=== PATIENT | female | born 1950 | race Caucasian/White ===

== ENCOUNTER 2016-12-09 13:31 | Inpatient (IN) | payer BC ==
[2016-12-08 12:54] LABS: MEAN CORPUS HGB CONC 32.3 g/dL (32.0-36.0); MEAN CORPUSCULAR HEMOGLOB 31.7 pg (26.0-34.0); MEAN CORPUSCULAR VOLUME 98.1 fL (80-100); MEAN PLATELET VOLUME 8.9 fL (9.2-13.0); NUCLEATED RED BLOOD CELLS 0.3 /100WBC (0-0); PLATELET COUNT 111 10/3/uL (150-400); RBC DISTRIBUTION WIDTH 21.5 % (12.0-16.0); RED CELL COUNT 2.62 10/6/uL (4.0-5.6)
[2016-12-08 12:55] LABS: HEMATOCRIT 25.7 % (36.0-48.0); HEMOGLOBIN 8.3 g/dL (12.0-16.0); MANUAL DIFF YES %; RETICULOCYTE COUNT 1.8 % (0.5-2.5); RETICULOCYTE COUNT ABSOLUTE 46.7 10/3/uL (20.2-119.8); WHITE BLOOD CELLS 62.2 10/3/uL (4.5-10.5)
[2016-12-08 13:19] LABS: LYMPHOCYTES 98 %; LYMPHOCYTES ABSOLUTE (CALC) 60.96 10/3/uL (0.67-4.30); NEUTROPHILS ABSOLUTE (CALC) 1.24 10/3/uL (2.02-8.40); SEGMENTED NEUTROPHIL (0) 2 %; TOTAL NUCLEATED CELLS 100
[2016-12-08 13:20] LABS: ANISOCYTOSIS 1+ (5-10/OIF) (0-5/OIF); PLATELET ESTIMATE SLT DEC (ADEQUATE)
[2016-12-08 13:21] LABS: SMUDGE CELLS RARE
[2016-12-08 13:26] LABS: ATYPICAL LYMPH MOD (6-10%) (0-5%)
--- NOTE | ~2016-12-09 | OP ---
Record Of [facility] [address] [place]. [address] NAME: DICKSON SOSA : 50 STATUS : ADM IN [facility]#: [id number] AGE: 66 ADM/REG DATE : 12/09/16 MR#: [id number] REPORT SERV DATE: 12/30/16 DICTATED BY: KHOI NAVA DATE: 12/30/16 REPORT STATUS : Draft TRANSCRIBED BY: MODL DATE: 12/30/16 DATE OF PROCEDURE: 12/30/2016 PREOPERATIVE DIAGNOSES: 1. Acute kidney injury. 2. Liver dysfunction. 3. Leukemia. 4. Thrombocytopenia. 5. Coagulopathy. POSTOPERATIVE DIAGNOSES: 1. Acute kidney injury. 2. Liver dysfunction. 3. Leukemia. 4. Thrombocytopenia. 5. Coagulopathy. PROCEDURE: Right IJ Vas-Cath. SURGEON: Khoi Nava M.D. DIRECTOR CLIENT: None. ANESTHESIA: Local. INDICATIONS: The patient is a 66-year-old female with the aforementioned comorbidities who has acute kidney injury. She needs a dialysis catheter. I talked to her family about the risks, benefits, and alternatives of catheter placement. Dr. Tohmas was also present for the discussion to discuss longer term issues. After a thorough discussion, they agreed to proceed. DESCRIPTION OF PROCEDURE: After informed consent was obtained, the patient's right neck was prepped and draped in usual sterile fashion. Ultrasound-guided access was obtained of the right internal jugular vein. The ultrasound image was documented on the chart. I passed a wire centrally. I dilated the tract. I inserted the catheter through into the peel-away sheath and peeled away the sheath. I confirmed that the catheter was not kinked and that it aspirated and flushed well. The catheter was sutured in place, and a sterile dressing was applied. The patient tolerated the procedure well without any intraprocedural complications noted. CLINICAL FELLOW/ELIZABETH Khoi Nava M.D. Record Of [place] [id number] [place]. [id number] NAME: DICKSON SOSA : 50 STATUS : ADM IN PAT#: [id number] AGE: 66 ADM/REG DATE : 12/09/16 MR#: [id number] REPORT SERV DATE: 12/30/16 DICTATED BY: KHOI NAVA DATE: 12/30/16 REPORT STATUS : Draft TRANSCRIBED BY: ELIZABETH DATE: 12/30/16 / [id number] CC: Gina Wiley M.D. Joseph Watlington, M.D.
--- NOTE | ~2016-12-09 | CN ---
Consultation Report [facility] [address] [place]. [address] NAME: DICKSON SOSA : 50 STATUS : ADM IN PAT#: [id number] AGE: 66 ADM/REG DATE : 12/09/16 MR#: [id number] REPORT SERV DATE: 12/14/16 DICTATED BY: BASIM PINO DATE: 12/14/16 REPORT STATUS : Draft TRANSCRIBED BY: MODL DATE: 12/14/16 INFECTIOUS DISEASE CONSULT DATE OF CONSULTATION: REASON FOR REFERRAL: Evaluation and treatment of neutropenic fever. HISTORY OF PRESENT ILLNESS: The patient is a 66-year-old female with history of hypertension, diabetes mellitus, and hypothyroidism. She presented with multiple symptoms and was found to have a strikingly high white blood cell count and diagnosed with AML. She was then admitted on 12/09/2016 to begin chemotherapy for that. White blood cell count at that time 69,000. She was begun on treatment as outlined in Dr. Thomas's notes, and her white blood cell count is now 1.1. She had a fever on 12/11/2016. Blood cultures were taken at that time, and she was started empirically on cefepime, but the fever continued and so Diflucan was added the next day and then vancomycin added yesterday, but despite those antimicrobials, she has continued to be febrile each day to 103 degrees and was 103.1 early this morning. She denies any focal symptoms. She has had some loose stool today, but that is in response to multiple laxatives that were given for chronic problem of constipation. She is not complaining of abdominal cramps or pain. No nausea or vomiting. She is not complaining of a headache. She had some mild mouth soreness, but no ulcerations, no difficulty or pain swallowing. No cough or shortness of breath. No dysuria. No focal joint, muscle, or bone pain and no skin lesions or rashes. She lives in [place], is [place], and has not traveled anywhere outside of this area for several years. She has never traveled outside the [place]. She lives at home with her . He is chronically disabled with congestive heart failure and bed-bound, but has not been ill with any sort of infection-type symptoms recently. No one visiting them or has been around her has had an infection. She has a dog and a bird, both of which she has had for a number of years and neither of them have been sick. She has not been around any other animals. No unusual foods. She spends very little time outside, so no outdoor wilderness or dust exposure. PAST MEDICAL HISTORY: Otherwise, unremarkable. MEDICATIONS: Antibiotics are as described above. ALLERGIES: SHE HAS A HISTORY OF A RASH WITH BOTH PENICILLIN AND SULFA. SOCIAL HISTORY: She is a nonsmoker, has no history of alcohol or substance abuse. FAMILY HISTORY: Noncontributory. PHYSICAL EXAMINATION: GENERAL: She appears tired but nontoxic. Alert and oriented x3. VITAL SIGNS: Most recent temperature as mentioned was 103.1, pulse of 99, respirations 30, Consultation Report [place] [id number] [place]. [address] NAME: DICKSON SOSA : 50 STATUS : ADM IN [facility]#: [id number] AGE: 66 ADM/REG DATE : 12/09/16 MR#: [id number] REPORT SERV DATE: 12/14/16 DICTATED BY: BASIM PINO DATE: 12/14/16 REPORT STATUS : Draft TRANSCRIBED BY: ELIZABETH DATE: 12/14/16 blood pressure 156/66. Weight 93 kg. HEENT: Her sclerae are clear. There are no ulcerations seen. No pharyngeal lesions. NECK: Supple without meningeal signs or lymphadenopathy. LUNGS: Clear to auscultation. HEART: Regular rate and rhythm. ABDOMEN: Soft, nontender. Positive bowel sounds. No masses palpated. EXTREMITIES: Without clubbing, cyanosis, or edema. No swollen, red, or hot joints. No skin lesions or rashes. PICC line is in the right upper extremity, shows no warmth, redness, or tenderness. LABORATORY DATA: White blood cell count as stated is 1.1 today with 16% segs and no bands. Hematocrit 23.2, platelets are 44. BUN and creatinine 11 and 0.66. SGOT 84, SGPT 85. Liver function tests, otherwise, within normal limits. Urine at the time of the fever showed no signs of infection. Blood cultures taken both on 12/11/2016 and 12/13/2016 remain negative. Chest x-ray done three days ago showed no infiltrates. IMPRESSION: Neutropenic fever. The patient was recently diagnosed and treatment started for acute myeloid leukemia. At this point, there is no evident source based on her symptoms and exam and negative cultures. There are no exposures to suggest an unusual source at this time. RECOMMENDATIONS: 1. Agree with the vancomycin and Diflucan and continuing the empiric use of those. 2. For gram-negative coverage, we will change the cefepime to meropenem to better cover resistant gram-negative rods. 3. Followup to cultures has been already done since they were just done late yesterday, would not repeat those today. 4. I will follow the patient with you. I appreciate very much your consulting on this patient. JANETTE/ELIZABETH Basim Pino M.D. / [id number] CC: Gina Wiley M.D.
--- NOTE | ~2016-12-09 | DS ---
Discharge Summary [facility] [address] [place]. [address] NAME: DICKSON SOSA : 50 STATUS : DIS IN PAT#: [id number] AGE: 66 ADM/REG DATE : 12/09/16 MR#: [id number] REPORT SERV DATE: 01/17/17 DICTATED BY: DAVID MACIEL DATE: 01/16/17 REPORT STATUS : Draft TRANSCRIBED BY: ELIZABETH DATE: 01/16/17 Data Collection from hospitalization DISCHARGE DIAGNOSES: 1. Acute myeloblastic leukemia. 2. Decreased platelet count. 3. Kidney injury. 4. Shock. 5. Hypertension. 6. Type 2 diabetes mellitus. 7. Hypothyroidism. 8. Migraines. 9. Dyslipidemia. 10.Chronic anemia. 11.Former smoker. CONSULTATIONS: Dr. Gopi Villalobos, Dr. Ferny Coffman, Dr. Rika Scott, Tejas Welsh, and Dr. Khoi Nava. PROCEDURES: 1. Right IJ Vas-Cath, 12/30/2016. 2. Endotracheal intubation, 01/01/2017. 3. Hepatic echo, 12/23/2016. 4. Renal ultrasound, 12/29/2016. 5. CT scan of the brain without contrast, 12/31/2016. PATHOLOGY: Peripheral smear with severe pancytopenia without significant circulating neutrophils or blasts. Unilateral bone marrow biopsy aspiration and clot section day 13- depleted bone marrow without significant residual leukemic blast population (per routine morphology and flow cytometry). Marginally depleted trilineage hematopoiesis storage iron present. DISPOSITION: [facility] [facility] [facility]. HOSPITAL COURSE: This is a 66-year-old female who has acute myeloblastic leukemia not having achieved remission. The patient was going to be admitted to begin 7 + 3 chemotherapy. Her bone marrow biopsy showed probable acute myeloblastic leukemia. Flow cytometry was pending. Echocardiogram was also pending. She has hypertension and diabetes that are well controlled. She has well-controlled thyroid disease. She was admitted to the hospital at this time for further evaluation and treatment. On the day following admission, 7 + 3 therapy was begun. A PICC line had been inserted. She said she was feeling okay. She had some bilateral shoulder discomfort. IV fluids were being provided. She was transfused packed red blood cells. On the , she was feeling okay. She had a mild cough. She was alert and cooperative. She had no edema. Day 2 of her 7 + 3 continued. She was eating okay. Cefepime had been started. She did complain of having a dry mouth. She was in no distress. On the , her T-max was 101.6. Her anemia was stable. Her decreased platelet count was stable. Cefepime and fluconazole and Discharge Summary [address] [place]. [address] NAME: DICKSON SOSA : 50 STATUS : DIS IN PAT#: [id number] AGE: 66 ADM/REG DATE : 12/09/16 MR#: [id number] REPORT SERV DATE: 01/17/17 DICTATED BY: DAVID MACIEL DATE: 01/16/17 REPORT STATUS : Draft TRANSCRIBED BY: ELIZABETH DATE: 01/16/17 vancomycin were continued. She did have some nausea. On 12/14/2016, she was in no distress. Her lungs were clear bilaterally. She had a normal respiratory effort. Arixtra was held. Liver tests were elevated. She was seen by Dr. Gopi Villalobos for evaluation and treatment of neutropenic fever. She was not complaining of a headache, abdominal cramps or pain, nausea, or vomiting. She had some mild mouth soreness but no ulcerations and no difficulty or pain swallowing. His impression included neutropenic fever. White blood cell count was 1.1. There were no evident sores based on her symptoms and exam and negative cultures. There were no exposures to suggest unusual source at this time. He agreed with vancomycin and Diflucan continuation. Cefepime was changed to meropenem to better cover resistant gram-negative rods. Followup cultures were going to be obtained. On 12/15/2016, she had a little confusion. She said she felt cold. She was in no acute distress. Her affect was flat. Her T-max was 102.9. She was transfused. Allopurinol was stopped. Vitamin K was given. She had no new symptoms. Blood cultures were negative. White blood cell count was 0.5. The next day, she was transfused 2 units. She was transfused platelets. She did develop some diarrhea. She had some mild cramping. Her T- max was 103. C. difficile study was negative. Solu-Medrol was being provided. Nebulizer protocol was in place. On 12/18/2016, she was breathing much better. She had not had a fever in 24 hours. She did feel weak. She had 2+ edema. Her wheezing and dyspnea had resolved with Solu-Medrol and inhalers. Solu-Medrol was stopped. The patient was found to have subconjunctival hemorrhage. Platelets were transfused. Antibiotics were continued. On 12/20/2016, she was lethargic. She did have a fever and some confusion. White count was 0.2. Plans were being made for a bone marrow biopsy to be performed. Her Lasix was increased for fluid overload. On 12/21/2016, the patient felt tired. She had a normal respiratory effort. She had 2+ edema. Cultures were negative. Fluid overload was improving. She had no new symptoms. Following day, a bone marrow biopsy was performed. Potassium supplementation was given. IV Lasix was provided for edema. Her respiratory effort was normal. Her fever had improved. C. difficile study was going to be checked. Her bone marrow was negative for leukemia. Her T-max was 99.3 on the . She was afebrile. She still had some loose stools and abdominal pain. White count was 0.1. The next day, she was in no acute distress. C. difficile study was negative. She had some abdominal cramping earlier after drinking Glucerna. Liver function tests were still elevated a little. She had some mild nausea. Lasix was continued. A hepatic ultrasound had been performed. Hepatitis B, C, and A were negative. G-CSF was added. Lasix was increased. Lipitor was discontinued. Creatinine level had increased, 1.17. It was felt that she would need neutrophil recovery. Echocardiogram was performed. On the , she was lethargic. She was in no acute distress. Her lungs were clear bilaterally. We expected neutrophil recovery soon. Creatinine level was increasing. Potassium supplementation was held. She did have some nausea on the . She was seen by Dr. Ferny Coffman. Over the past week or so, she had been febrile, neutropenic, low albumin, and elevated liver enzymes and was now with acute renal failure. Creatinine had gone from 0.3 to 1.6. She had persistent tachycardia. Creatinine level was now 1.61. Because of her elevated creatinine and acute renal failure, we stopped the Glucophage, Cozaar, and Lasix, and we were going to begin some albumin to mobilize some of the edema and move some fluid intravascularly. Bone marrow was negative for leukemia at last check. she was still neutropenic, pancytopenic, and thrombocytopenic Discharge Summary [place] [address] [facility]. [id number] NAME: DICKSON SOSA : 50 STATUS : DIS IN PAT#: [id number] AGE: 66 ADM/REG DATE : 12/09/16 MR#: [id number] REPORT SERV DATE: 01/17/17 DICTATED BY: DAVID MACIEL DATE: 01/16/17 REPORT STATUS : Draft TRANSCRIBED BY: MODAga DATE: 01/16/17 because of chemotherapy. Metformin was stopped. Glucophage, Cozaar, and Lasix were discontinued. She was being treated with albumin to mobilize some fluid intravascularly. Urine sodium was going to be checked. On the , she was seen by Dr. Rika Scott regarding metabolic acidosis and tachypnea as well as question of hematemesis and AML with profound pancytopenia. ABG performed earlier that evening showed mild metabolic acidosis. She was profoundly thrombocytopenic and had been refractory to platelet transfusion. She has been transfused platelets earlier in the evening, and since the beginning of the shift, she had developed a petechial rash across her lower abdomen and under her breast. At this point, she was oxygenating and ventilating well on minimal supplemental oxygen and was not requiring vasopressors. Renal ultrasound was performed. She was moved to the MICU. It was felt we may ultimately need to move towards mechanical ventilation if she deteriorated further. In light of her hematemesis/hemoptysis, noninvasive positive pressure ventilation (BiPAP) would be contraindicated. Protonix infusion was going to begin. In light of suspected upper GI bleeding, serial H and H's would be checked. We would correct any coagulopathy. It was felt that she may ultimately require packed red blood cell transfusion if her hemoglobin dropped below 7. We would monitor the petechial rash closely. Urine was fairly unremarkable as far as source. Her PICC line had been changed a few days previously. DIC panel was going to be checked as well as a lactate level. On the , she appeared critically ill. She was lethargic. She had some respiratory distress. White blood cell count was 0.1. She was seen by Tejas Monterroso for evaluation and management of questionable upper GI bleeding. There was a question of upper GI bleed versus hemoptysis in a patient with severe thrombocytopenia. She was changed to IV Protonix. We discontinued Protonix drip. She was overloaded at this time. She would be transfused as needed. No endoscopy would be performed at this point in time secondary to multiple issues including respiratory distress and severe pancytopenia. We would need the platelet count to be 40-50 for endoscopy. We were going to check ammonia level as well as daily liver function tests. On 12/30/2016, she became increasingly lethargic. There was no gross bleeding. She was comfortable, but her breathing was labored. She had low urine output. She was still tachypneic. The patient has acute kidney injury. It was felt that she would need a dialysis catheter. We discussed the risks, benefits, and alternatives with the patient and her family, and they agreed to proceed. The patient underwent right IJ Vas-Cath placement by Dr. Khoi Nava. Protonix was continued. The patient's family were aware of her grave prognosis. They repeatedly stated they have a desire to proceed with aggressive support including dialysis, mechanical ventilation if needed. Hemodialysis therapy was performed. On the , she had been transferred to the ICU. She was very lethargic. She had pitting edema. Her abdomen was distended. Transfusions were being provided as needed. Supportive care continued. The patient was obtunded. Platelet count was 4000. Liver function tests were trending down. Hemodialysis therapy was performed. She had a fever to 101.4. Her prognosis remained poor. CT scan of the brain without contrast was performed. No acute intracranial abnormality was identified. On 01/01/2017, she remained critically ill. She was on Levophed and face mask. She was still obtunded. Her T-max was 101.3. Chest x-ray was negative. She was already receiving micafungin. Her prognosis remained very poor. A new PICC line was inserted. Her mental status was declining. She developed hypercapnic respiratory failure. She required endotracheal intubation by Dr. Bayron Laurent due to her respiratory failure. The following day, she was comfortable on the ventilator. She was sedated. Her T-max is 99.9. This was a difficult situation as we expected marrow recovery- Discharge Summary [facility] [place]. [address] NAME: DICKSON SOSA : 50 STATUS : DIS IN PAT#: [id number] AGE: 66 ADM/REG DATE : 12/09/16 MR#: [id number] REPORT SERV DATE: 01/17/17 DICTATED BY: DAVID MACIEL DATE: 01/16/17 REPORT STATUS : Draft TRANSCRIBED BY: ELIZABETH DATE: 01/16/17 into remission over the next few days, but multiple organ systems were now failing (lung, kidney, liver, and circulation). Her T-max was 100.6 later that day. The patient was made a DNR code status. She was presently intubated and on no sedation. A palliative care consult was performed, and the patient had no response to verbal or painful stimuli. The patient had been agreeable to a DNR code status. Her condition continued to decline. Once the patient's family was ready, we were going to initiate withdrawal of care and extubation. Later that evening, the patient was without blood pressure, pulse, or respirations. She was pronounced at 1835 and released to the above-mentioned home. Information collected by: Kary Perez I submit the above information as my discharge summary. SERGIO/ELIZABETH David aMciel M.D. / [id number] CC: Gina Rodriguez M.D. Destin Griffin-Trussell, FNP Sachin V Phade, M.D. Joseph Watlington, M.D.
--- NOTE | ~2016-12-09 | CN ---
Consultation Report [facility] [address] [place]. [address] NAME: DICKSON SOSA : 50 STATUS : ADM IN [facility]#: [id number] AGE: 66 ADM/REG DATE : 12/09/16 MR#: [id number] REPORT SERV DATE: 12/28/16 DICTATED BY: FERNY BALTAZAR DATE: 12/28/16 REPORT STATUS : Draft TRANSCRIBED BY: MODAga DATE: 12/28/16 NEPHROLOGY CONSULTATION DATE OF CONSULTATION: HISTORY OF PRESENT ILLNESS: Ms. Sosa is a 66-year-old white female, admitted for chemotherapy, acute myelocytic leukemia. She has been in the hospital now over 20 days, admitted here apparently on 12/09/2016. In the last week or so, she has been febrile, neutropenic, low albumin, elevated liver enzymes, and now with acute renal failure. Creatinine has gone from 0.3 to 1.6 over the last seven days. Intake and output over the last several days have not been recorded. It has been incomplete because of not measuring urine output and significant diarrhea. She has no hypotension reported. She had persistent tachycardia. She has been less febrile over the last several days, but prior to that, had significant insensible losses because of her fever and diarrhea. MEDICATIONS: Currently Zovirax, Benadryl, vancomycin, Lasix, NovoLog insulin, Synthroid, Cozaar, Merrem, Glucophage, Protonix, vitamin K, potassium, Granix, and vancomycin. She is also on micafungin and electrolyte replacement therapy. ALLERGIES: SHE IS ALLERGIC TO PENICILLIN AND SEPTRA, BOTH OF THESE DEVELOP A RASH, AND SHE ALSO SAYS SHE IS ALLERGIC TO NAPROXEN AND OXYCODONE. PAST MEDICAL HISTORY: Hypothyroidism, hypertension, and diabetes mellitus type 2. REVIEW OF SYSTEMS: Hospitalized diarrhea, fever, chills, chemotherapy, pancytopenia, and weakness. PHYSICAL EXAMINATION: VITAL SIGNS: Blood pressure 138/64, heart rate 105, respirations 24, temperature 97.5. GENERAL: She is tachypneic, sleepy, but in no acute distress. HEENT: Unremarkable. NECK: Without jugular venous distention. No lymphadenopathy. CHEST: Clear anteriorly with some crackles at the bases and some mild expiratory wheezing at the end of expiration. ABDOMEN: Obese, benign. Bowel sounds are present. She states it is tender, but she cannot tell me where. EXTREMITIES: 3+ pitting edema diffusely. NEUROLOGIC: Nonfocal. SKIN: No rash. LABORATORY DATA: Shows sodium 140, potassium 3.7, chloride 108, CO2 of 20 with a BUN of 58, creatinine 1.61, up from 1.17 yesterday, 0.8 the day before, and baseline 0.39. SGOT 153, SGPT of 186. White count 0.1, hemoglobin 7.6, hematocrit 21.7, platelet count 2000. Consultation Report [facility] [address] [place]. [address] NAME: DICKSON SOSA : 50 STATUS : ADM IN [facility]#: [id number] AGE: 66 ADM/REG DATE : 12/09/16 MR#: [id number] REPORT SERV DATE: 12/28/16 DICTATED BY: FERNY BALTAZAR DATE: 12/28/16 REPORT STATUS : Draft TRANSCRIBED BY: ELIZABETH DATE: 12/28/16 ASSESSMENT: 1. Acute kidney injury, mostly prerenal. She had some diarrhea starting on 12/22/2016. Diuretics were started on 12/16/2016, but increased the dose on 12/20/2016 and again on 12/27/2016. She is chronically edematous secondary to albumin of 1.2 and not taking p.o. well. Apparently, she does not appear intravascularly volume expanded, but mostly third spacing of fluids. Cannot rule out the vancomycin playing a role in her kidney failure or interstitial nephritis, doubt obstruction. Because of her elevated creatinine and acute renal failure, we will stop the Glucophage, Cozaar, and Lasix, and begin some albumin to mobilize some of the edema and move some fluid intravascularly. 2. Acute myelomonocytic leukemia. Bone marrow negative for leukemia last check. Still neutropenic, pancytopenic, and thrombocytopenic because of the chemotherapy. 3. Elevated liver enzymes, unknown etiology. 4. Possible sepsis because of neutropenia, hard to tell, but has been febrile until just recently. Currently on vancomycin, meropenem, and micafungin. 5. Diabetes mellitus type 2, on insulin. We will stop the metformin. 6. Hypothyroid, on therapy. 7. Diarrhea, we will check for C diff since is at the hospital and on diuretics. PLAN: Stop Glucophage, Cozaar, and Lasix, treat with albumin to mobilize some fluid intravascularly. Hopefully, it is mostly prerenal. We will check a urine sodium also. SHIVANI/ELIZABETH Ferny Baltazar M.D. / [id number] CC: Gina Wiley M.D.
--- NOTE | ~2016-12-09 | OP ---
Record Of Operation [facility] [address] [place]. [address] NAME: DICKSON SOSA : 50 STATUS : ADM IN [facility]#: [id number] AGE: 66 ADM/REG DATE : 12/09/16 MR#: [id number] REPORT SERV DATE: 01/01/17 DICTATED BY: BAYRON LAURENT DATE: 01/01/17 REPORT STATUS : Draft TRANSCRIBED BY: MODL DATE: 01/01/17 DATE OF PROCEDURE: 01/01/2017 PROCEDURE: Endotracheal intubation. PREPROCEDURE DIAGNOSIS: Respiratory failure. POSTPROCEDURE DIAGNOSIS: Respiratory failure. DESCRIPTION OF PROCEDURE: Verbal consent obtained from the by phone. The patient's mental status was a GCS less than 8 and she had acute hypercapnic respiratory failure, on BiPAP. The patient was taken off the BiPAP and Ambu bagged with O2 saturations at the start of the procedure 95% or greater. She was given 20 mg of etomidate to assist in sedation. Using a Mac 4 blade, I was able to place a 7.5 ET tube without any difficulty. No significant complications or bleeding. Postprocedure chest x-ray is pending. CEP/ELIZABETH Bayron Laurent DO / [id number] CC: Gina Wiley M.D.
--- NOTE | ~2016-12-09 | CN ---
Consultation Report [facility] [id number] [place]. [address] NAME: DICKSON SOSA : 50 STATUS : ADM IN PAT#: [id number] AGE: 66 ADM/REG DATE : 12/09/16 MR#: [id number] REPORT SERV DATE: 12/29/16 DICTATED BY: FERNY BALTAZAR DATE: 12/28/16 REPORT STATUS : Draft TRANSCRIBED BY: ELIZABETH DATE: 12/28/16 NEPHROLOGY CONSULT NOTE DATE OF CONSULTATION: HISTORY OF PRESENT ILLNESS: Ms. Sosa is a 66-year-old lady with acute myelocytic leukemia, admitted to the hospital for chemotherapy. She is on her 20th day of hospitalization. DICTATION ENDS HERE SHIVANI/ELIZABETH Ferny Baltazar M.D. / [id number] CC: Gina Wiley M.D.
--- NOTE | ~2016-12-09 | CN ---
Consultation Report [facility] [address] [place]. [address] NAME: DICKSON SOSA : 50 STATUS : ADM IN PAT#: [id number] AGE: 66 ADM/REG DATE : 12/09/16 MR#: [id number] REPORT SERV DATE: 12/29/16 DICTATED BY: RIKA LAMA DATE: 12/29/16 REPORT STATUS : Draft TRANSCRIBED BY: MODL DATE: 12/29/16 PULMONARY CRITICAL CARE MEDICINE CONSULTATION DATE OF CONSULTATION: 12/29/2016 REASON FOR CONSULTATION: Metabolic acidosis and tachypnea, question of hematemesis, AML with profound pancytopenia. HISTORY OF PRESENT ILLNESS: Ms. Sosa is a 66-year-old lady who was admitted for chemotherapy after being diagnosed with acute myelocytic leukemia. She was initially admitted here on 12/09/2016 and has been undergoing therapy on . Over the last week, she has become intermittently febrile with neutropenia secondary to chemotherapy, hypoalbuminemia, elevated transaminases, and has now developed acute kidney injury. She was seen by Dr. Coffman earlier today who felt she was intravascularly dry despite being extravascularly volume overloaded with 3+ pitting edema and bilateral crackles. Of note, she has been having significant diarrhea over the last several days and limited p.o. intake. We were asked to transfer Ms. Sosa to the MICU for closer monitoring tonight after developing some bleeding from her mouth with question of hematemesis versus hemoptysis versus both. She is currently awake, alert, and oriented, but profoundly weak with some tachypnea. An ABG performed earlier this evening showed mild metabolic acidosis. Of note, she is profoundly thrombocytopenic and has been refractory to platelet transfusions. She was transfused platelets earlier this evening and since beginning of the shift, has developed petechial rash across her lower abdomen and under her breasts. Her most recent bone marrow biopsy was actually negative for leukemia suggestive of a good response to therapy and remission, and Dr. Mahmood feels that in light of this, continued aggressive medical management is reasonable. At this point, she is oxygenating and ventilating well on minimal supplemental oxygen and is not requiring vasopressors. PAST MEDICAL HISTORY: In addition to recently diagnosed AML, includes hypothyroidism, hypertension, and type 2 diabetes mellitus. She had chicken pox, measles, and shingles in the past. She has a history of migraines, cataracts, an intra-ocular lens implant, dyslipidemia, prior dental surgery, disc herniation, arthritis, pinched nerve in her back, chronic constipation. She has had a prior cholecystectomy, appendectomy, and hysterectomy. She is diabetic and has chronic anemia. Her primary care physician is Dr. Keagan Mulligan. Her primary oncologist is Dr. Toby Thomas. FAMILY HISTORY: Mother had stomach cancer. Father had hypertension and diabetes. A brother has COPD and another brother has diabetes. SOCIAL HISTORY: Denies alcohol, tobacco, or illicit drug use. She is a former smoker, but quit many years ago. She has a daughter, named Nikc Cagle, whose phone number is [phone]. Consultation Report [address] [place]. [address] NAME: DICKSON SOSA : 50 STATUS : ADM IN [facility]#: [id number] AGE: 66 ADM/REG DATE : 12/09/16 MR#: [id number] REPORT SERV DATE: 12/29/16 DICTATED BY: RIKA LAMA DATE: 12/29/16 REPORT STATUS : Draft TRANSCRIBED BY: ELIZABETH DATE: 12/29/16 ADVANCED DIRECTIVES: Living Mcgee: None. She is a full code at this point. REVIEW OF SYSTEMS: A comprehensive 13-point review of systems was completed and is negative except for those points described above in the history of present illness section of the dictation. ALLERGIES: PENICILLIN CAUSES A RASH, SULFA ANTIBIOTICS CAUSE A RASH, OXYCODONE HAS CAUSED ITCHING IN THE PAST, NAPROXEN HAS CAUSED A RASH. HOME MEDICATIONS: Include levothyroxine 88 mcg p.o. daily, metformin 500 mg p.o. daily, losartan 100 mg p.o. daily, Crestor 20 mg p.o. daily, aspirin 81 mg p.o. daily, multivitamin once daily, and Tylenol up to every 8 hours as needed for pain. PHYSICAL EXAMINATION: VITAL SIGNS: Heart rate is 103. She is satting 99% on 2 L of supplemental oxygen. Her temperature is 99.1, and she is breathing 24 times per minute. GENERAL: She is in no acute distress. She is a female who looks debilitated with significant pallor. HEENT: Head is atraumatic and normocephalic. Pupils are equal, round, and reactive to light. Extraocular movements are intact. She has conjunctival pallor. Ears and nose are unremarkable. Her mouth is dry with some crusted blood in her teeth and around the gingival mucosa. NECK: Supple without JVD. LUNGS: She has few bilateral basilar crackles. HEART: S1, S2. Mildly tachycardic with brisk capillary refill, distal extremities. ABDOMEN: Obese, soft, with anasarca and some striations. : A Ocampo catheter is indwelling and draining cola-colored urine. EXTREMITIES: With 3+ edema which pits bilaterally. Her nails are well manicured. LYMPHATIC: Unremarkable. She has no palpable adenopathy. NEUROLOGIC: Significant for generalized weakness. She is unable to move her legs and has a weak cough. SKIN: She has a petechial rash under the breasts and under her pannus and developing over her upper abdomen. PSYCHOLOGIC: Appropriate to situation. LABORATORY STUDIES: A CBC from today showed a white blood cell count of 0.1 with a hemoglobin of 7.6, and a hematocrit of 21.7 (normochromic normocytic). Her platelet count is 2, which has dropped from 5 yesterday, despite platelet transfusions. INR is 1.8. Sodium is 140, potassium is 3.7, chloride is 108, carbon dioxide level is 20, BUN is 58, creatinine is 1.61, calculated GFR is 33 mL/min, glucose is 149, calcium is 6.3, magnesium is 2.1, total protein is 4.8 with an albumin level of 1.2, total bilirubin is 3.3. She has elevated transaminases. Alk phos is 108, ALT is 186, and AST is 153. A random vancomycin level was 24.6. An ABG performed this evening shows pH of 7.45, PaCO2 of 27, pO2 of 66, base excess of negative 4.9, bicarb is 18.5 (calculated), O2 sat is 91.6 on 28% FiO2. Her Consultation Report [facility] [address] [place]. [address] NAME: DICKSON SOSA : 50 STATUS : ADM IN [facility]#: [id number] AGE: 66 ADM/REG DATE : 12/09/16 MR#: [id number] REPORT SERV DATE: 12/29/16 DICTATED BY: RIKA LAMA DATE: 12/29/16 REPORT STATUS : Draft TRANSCRIBED BY: MODAga DATE: 12/29/16 urinalysis this evening shows turbid urine with mild glucosuria and proteinuria, trace ketones, negative bilirubin, large blood with only 8 red blood cells and 0 white blood cells. Leukocyte esterase and nitrite are negative. A chest x-ray performed this evening shows hazy bilateral opacities in the lower lung zones with a PICC line indwelling on the right side, low lung volumes, and mild cardiomegaly (there was a recumbent film, this maybe magnification of the cardiac silhouette due to positioning). Echocardiogram performed on 12/27/2016 shows 58% left ventricular systolic function and normal right ventricular systolic pressure at 29 mmHg. Her estimated PA systolic pressure was 28.6. Bone marrow biopsy performed 12/22/2016 shows severe pancytopenia without significant circulating neutrophils or blasts. IMPRESSION: 1. Acute hypoxemic respiratory failure, which is responding well to supplemental oxygen. 2. Metabolic acidosis with some respiratory compensation. 3. Question of evolving sepsis of unclear etiology. 4. Acute kidney injury, likely secondary to acute tubular necrosis with clinical evidence of volume depletion in the setting of vancomycin administration and recent diarrhea. 5. Severe pancytopenia, which has been refractory to platelets. 6. Bleeding from the mouth in the setting of thrombocytopenia, question of hematemesis versus hemoptysis versus both. 7. Coagulopathy with an INR of 1.8 in the setting of recent chemotherapy. 8. Petechial rash, which is new this evening with recent platelet administration. 9. Additional past medical history as above. 10.Severe physical deconditioning and protein-calorie malnutrition. 11.Acute myeloid leukemia with evidence of good response to chemotherapy based on 12/22/2016 bone marrow biopsy. 12.Additional past medical history as above. PLAN: Ms. Sosa has been moved to the MICU for close monitoring and serial labs. Our hope is to avoid the need to intubate; however, in the setting of respiratory muscle weakness and inability to clear secretions and tachypneic from metabolic acidosis, certainly a possibility. We will monitor her closely on supplemental oxygen and may ultimately need to move toward mechanical ventilation if she deteriorates further in light of her hematemesis/hemoptysis, noninvasive positive pressure ventilation (BiPAP) would be contraindicated. We will start her on a Protonix infusion in light of suspected upper GI bleeding and check serial H and H's and correct any coagulopathy. She may ultimately require packed red blood cell transfusion if her hemoglobin drops below 7.0, and we will involve a Gastroenterology tomorrow morning and proceed with volume replacement if needed this evening. We will monitor her petechial rash closely and keep Oncology updated with regard to question of evolving sepsis. Her urine is fairly unremarkable as far as source, and her PICC line was changed a few days ago. She is being followed by Dr. Villalobos from Infectious Diseases, and is already on broad-spectrum antimicrobial coverage as well as antifungal coverage. C. diff was sent earlier today by Dr. Coffman. We will also send DIC panel and check a lactate level. She is a full code at this point and we will continue to update her daughter on an as-needed basis and again tomorrow morning. Consultation Report [address] [address] NAME: DICKSON SOSA : 50 STATUS : ADM IN [facility]#: [id number] AGE: 66 ADM/REG DATE : 12/09/16 MR#: [id number] REPORT SERV DATE: 12/29/16 DICTATED BY: RIKA LAMA DATE: 12/29/16 REPORT STATUS : Draft TRANSCRIBED BY: ELIZABETH DATE: 12/29/16 HELENE/ELIZABETH Rika Lama MD / [id number] CC: Gina Wiley M.D.
--- NOTE | ~2016-12-09 | CN ---
Consultation Report [facility] [address] [place]. [address] NAME: DICKSON SOSA : 50 STATUS : ADM IN PAT#: [id number] AGE: 66 ADM/REG DATE : 12/09/16 MR#: [id number] REPORT SERV DATE: 12/29/16 DICTATED BY: JOANNA REBOLLEDO DATE: 12/29/16 REPORT STATUS : Draft TRANSCRIBED BY: MODAga DATE: 12/29/16 GI CONSULTATION DATE OF CONSULTATION: 12/29/2016 REASON FOR CONSULTATION: Evaluation and management of questionable upper GI bleeding. HISTORY OF PRESENT ILLNESS: Ms Sosa is a 66-year-old female patient, who has been seen by Dr. Zaheer Wright in the distant past, who presented to [facility] on 12/14/2016 secondary to neutropenic fever. She has a history of having an elevated white blood cell count, and ultimately was diagnosed with AML. She was admitted on 12/09/2016, undergoing chemotherapy on the Oncology Unit over the last week, and they reported she has been intermittently spiking fevers, severe neutropenia secondary to chemotherapy as well as elevated liver enzymes with acute kidney injury developing most recently. Renal has seen her. She was ultimately moved to the MICU for closer monitoring. It appears that overnight she developed some bleeding from her mouth with question if this could be hematemesis or hemoptysis, it is not clear. She did also have a noted petechial rash that did develop across her lower abdomen, under her breasts as well as on her upper chest with a noted platelet count this morning is 0. Her white blood cell count is 0.12, and she has been refractory to any platelet transfusions. She currently awakens to name, but she is very ill appearing. She is oriented. She is profoundly weak. She is short of breath just trying to have conversation. She has noted anasarca. She is receiving a respiratory treatment at this point in time. She actually had a bone marrow biopsy done which was negative for leukemia suggestive of a very good response to her chemotherapy at this point in time. She was moved to the MICU for further care with concern of impending intubation. At this point in time, she is maintaining adequate sats on 2 L by nasal cannula. However, she does have some increased respiratory drive. I have discussed with the patient, she denies any nausea or any vomiting. She has abdominal discomfort, but she relates that to swelling. There has been no report of melanotic stools. She has been started on a Protonix drip. I have discussed the case with Dr. Byrne, hospital geographic information systems engineer at this point in time secondary to all of her abnormal laboratory values. She is not optimal candidate for scope. Platelet count preferably would be 40 to 50 for endoscopy. We will keep her on the Protonix and monitor her symptoms. If emergent scope is needed, we will discuss with Dr. Wright. PAST MEDICAL HISTORY: She has a past medical history of colon polyps; recently diagnosed AML, undergoing therapy; hypothyroidism; type 2 diabetes; obesity; hypertension; migraines; cataracts with an intra-ocular lens implant history; dental surgeries; disk herniation; arthritis; back with pinched nerve; chronic constipation; dyslipidemia; cholecystectomy; appendectomy; and hysterectomy. FAMILY HISTORY: Positive for stomach cancer in her mother. SOCIAL HISTORY: She lives independently up until her hospitalization. She was noted to be a former smoker. No alcohol or illicits in the outpatient setting. Consultation Report [address] [place]. [address] NAME: DICKSON SOSA : 50 STATUS : ADM IN [facility]#: [id number] AGE: 66 ADM/REG DATE : 12/09/16 MR#: [id number] REPORT SERV DATE: 12/29/16 DICTATED BY: JOANNA REBOLLEDO DATE: 12/29/16 REPORT STATUS : Draft TRANSCRIBED BY: ELIZABETH DATE: 12/29/16 ALLERGIES: ALLERGIES ARE LISTED TO PENICILLIN, SULFA, OXYCODONE, AND NAPROXEN. HOME MEDICATIONS: Listed to levothyroxine, metformin, losartan, Crestor, aspirin, multivitamin, and Tylenol. REVIEW OF SYSTEMS: Review of systems is somewhat limited due to the patient's status. PHYSICAL EXAMINATION: VITAL SIGNS: Temperature is 98.5, pulse 100, respirations 30, and blood pressure 133/53. NEUROLOGIC: Reveals an ill-appearing female, resting in bed. She does open her eyes to name. GENERAL: She is in distress secondary to some mild shortness of breath, which increases with any exertion. HEAD, EARS, EYES, NOSE, AND THROAT: Anicteric. Pupils are equal, round, and reactive to light and accommodation. Normocephalic and atraumatic. NECK: Supple. No JVD noted. No palpable nodes. LUNGS: She has shallow inspiratory effort with some crackles bilaterally. Mild respiratory rate count of 34. CARDIOVASCULAR SYSTEM: Regular rate and rhythm. Tachycardic in nature. ABDOMEN: Obese. Nondistended, but she has noted anasarca throughout. She has no tenderness to palpation in all four quadrants. She has hypoactive bowel sounds throughout. Unable to assess organomegaly. EXTREMITIES: She has noted generalized anasarca with 3+ pitting lower extremity edema. SKIN: Noted petechial rash in the upper chest as well as underneath the breasts and underneath the abdominal pannus. PERTINENT LABORATORY DATA: Sodium is 141, potassium 4.1, BUN 74, and creatinine is 2.12. White count 0.1, hemoglobin previously was 5.9, with a hematocrit of 17. She is status post transfusion with improvement to 8.0 hemoglobin, and a 22.7 hematocrit, and platelet count is 0. INR is 1.3. Total bilirubin 3.1, alkaline phosphatase 109, ALT 172, and AST 161. Hepatitis panel has been negative. ASSESSMENT: 1. Questionable upper gastrointestinal bleed versus hemoptysis in a patient with severe thrombocytopenia. 2. Acute myelogenous leukemia, undergoing treatment with reported good response to chemotherapy based on the 12/22/2016 bone marrow biopsy. 3. Anemia, acute on chronic status post transfusion. 4. Acute hypoxic respiratory failure, responding well at present to supplemental oxygen. Question intubation and pending. 5. Severe pancytopenia, refractory to platelets. 6. Elevated LFTs with coagulopathy. 7. Questionable sepsis. Consultation Report [address] [place]. [address] NAME: DICKSON SOSA : 50 STATUS : ADM IN [facility]#: [id number] AGE: 66 ADM/REG DATE : 12/09/16 MR#: [id number] REPORT SERV DATE: 12/29/16 DICTATED BY: JOANNA REBOLLEDO DATE: 12/29/16 REPORT STATUS : Draft TRANSCRIBED BY: MODL DATE: 12/29/16 PLAN: 1. We will change her Protonix to 40 mg IV q.6 hours and discontinue the Protonix drip to decrease additional volume as she is overloaded at this time. 2. Continue to monitor H and H, transfuse as needed. 3. No endoscopy at this point in time secondary to multiple issues including respiratory distress, severe pancytopenia. We would need the platelet count to be 40 to 50 for endoscopy. 4. We will continue to follow. 5. Check an ammonia level as well as daily LFTs. We will follow. OBINNA/ELIZABETH Chula DEBORAH Monterroso / [id number] CC: Gina Wiley M.D.
[2016-12-09 15:24] LABS: INTERNATIONAL NORMAL RATI 1.3 UNITS (-); PROTIME (NOT ORD) 15.6 SEC (12.0-14.5)
[2016-12-09] MEDS ORDERED: LEVOTHYROXIN88 MCG PO (15:49)
[2016-12-09] MEDS ORDERED: GLUCPH PO (15:51)
[2016-12-09] MEDS ORDERED: COZAAR100 MG PO (15:52)
[2016-12-09] MEDS ORDERED: CRESTOR20 MG PO (15:53)
[2016-12-09] MEDS ORDERED: ASAB PO (15:54)
[2016-12-09] MEDS ORDERED: GUMMY MULTIVITAMIN PO (15:57)
[2016-12-09] MEDS ORDERED: 8 HOUR650 MG PO (15:59)
[2016-12-10 05:59] LABS: INTERNATIONAL NORMAL RATI 1.4 UNITS (-); PARTIAL THROMBO TIME 33.4 SEC (22.5-37.2); PROTIME (NOT ORD) 16.9 SEC (12.0-14.5)
[2016-12-10 06:03] LABS: MEAN CORPUS HGB CONC 31.8 g/dL (32.0-36.0); MEAN CORPUSCULAR VOLUME 100.5 fL (80-100); MEAN PLATELET VOLUME 9.3 fL (9.2-13.0); NUCLEATED RED BLOOD CELLS 0.1 /100WBC (0-0); PLATELET COUNT 105 10/3/uL (150-400); RBC DISTRIBUTION WIDTH 21.5 % (12.0-16.0); RED CELL COUNT 2.19 10/6/uL (4.0-5.6)
[2016-12-10 06:05] LABS: MANUAL DIFF YES %; WHITE BLOOD CELLS 69.8 10/3/uL (4.5-10.5)
[2016-12-10 06:08] LABS: CALCIUM, SERUM 8.5 MG/DL (8.5-10.4); CHLORIDE, SERUM 108 MMOL/L (96-112); CO2 (CARBON DIOXIDE) 29 MMOL/L (24-34); CREATININE 0.62 MG/DL (0.55-1.02); FREE T4 1.18 NG/DL (0.76-1.46); GFR AFRICAN AMERICAN 109 ML/MIN (>=60); GFR NON AFRICAN AMERICAN 94 ML/MIN (>=60); GLUCOSE, SERUM 102 MG/DL (60-99); SGOT(AST) 26 U/L (5-40); SGPT(ALT) 42 U/L (5-65); SODIUM, SERUM 139 MMOL/L (135-148); TOTAL BILIRUBIN 0.3 MG/DL (0-1.2); TOTAL PROTEIN 6.6 G/DL (6.0-8.5)
[2016-12-10 06:09] LABS: A/G RATIO 0.8 (0.7-1.9); ALKALINE PHOSPHATASE 47 U/L (45-117); BUN (BLOOD UREA NITROGEN) 7 MG/DL (6-23); GLOBULIN 3.6 G/DL (2.5-4.1)
[2016-12-10 07:22] LABS: ANISOCYTOSIS 1+ (5-10/OIF) (0-5/OIF); ATYPICAL LYMPH MOD (6-10%) (0-5%); BAND NEUTROPHILS 1 %; LYMPHOCYTES 95 %; LYMPHOCYTES ABSOLUTE (CALC) 66.31 10/3/uL (0.67-4.30); MONOCYTES 1 %; NEUTROPHILS ABSOLUTE (CALC) 2.79 10/3/uL (2.02-8.40); PLATELET ESTIMATE DEC (ADEQUATE); SEGMENTED NEUTROPHIL (0) 3 %; SMUDGE CELLS RARE; TOTAL NUCLEATED CELLS 100
[2016-12-11 05:36] LABS: HEMOGLOBIN 7.8 g/dL (12.0-16.0); MEAN CORPUS HGB CONC 32.1 g/dL (32.0-36.0); MEAN CORPUSCULAR HEMOGLOB 31.7 pg (26.0-34.0); MEAN CORPUSCULAR VOLUME 98.8 fL (80-100); MEAN PLATELET VOLUME 9.1 fL (9.2-13.0); NUCLEATED RED BLOOD CELLS 0.2 /100WBC (0-0); PLATELET COUNT 87 10/3/uL (150-400); RBC DISTRIBUTION WIDTH 21.8 % (12.0-16.0); RED CELL COUNT 2.46 10/6/uL (4.0-5.6)
[2016-12-11 05:37] LABS: HEMATOCRIT 24.3 % (36.0-48.0); MANUAL DIFF YES %; WHITE BLOOD CELLS 51.1 10/3/uL (4.5-10.5)
[2016-12-11 05:47] LABS: A/G RATIO 0.8 (0.7-1.9); ALBUMIN 2.8 G/DL (3.5-5.0); ALKALINE PHOSPHATASE 49 U/L (45-117); BUN (BLOOD UREA NITROGEN) 10 MG/DL (6-23); CALCIUM, SERUM 8.4 MG/DL (8.5-10.4); CHLORIDE, SERUM 108 MMOL/L (96-112); CO2 (CARBON DIOXIDE) 25 MMOL/L (24-34); GFR AFRICAN AMERICAN 110 ML/MIN (>=60); GFR NON AFRICAN AMERICAN 95 ML/MIN (>=60); GLOBULIN 3.5 G/DL (2.5-4.1); GLUCOSE, SERUM 118 MG/DL (60-99); POTASSIUM, SERUM 4.1 MMOL/L (3.5-5.3); SGOT(AST) 26 U/L (5-40); SGPT(ALT) 47 U/L (5-65); SODIUM, SERUM 140 MMOL/L (135-148); TOTAL BILIRUBIN 0.4 MG/DL (0-1.2); TOTAL PROTEIN 6.3 G/DL (6.0-8.5)
[2016-12-11 06:29] LABS: BAND NEUTROPHILS 1 %; LYMPHOCYTES 97 %; LYMPHOCYTES ABSOLUTE (CALC) 49.57 10/3/uL (0.67-4.30); MONOCYTES 1 %; MONOCYTES ABSOLUTE (CALC) 0.51 10/3/uL (0.21-1.20); NEUTROPHILS ABSOLUTE (CALC) 1.02 10/3/uL (2.02-8.40); PLATELET ESTIMATE DEC (ADEQUATE); SEGMENTED NEUTROPHIL (0) 1 %; TOTAL NUCLEATED CELLS 100
[2016-12-11 06:30] LABS: OVALOCYTES 1+ (3-10/OIF) (0-2/OIF); POLYCHROMASIA 1+ (2-5/OIF) (0-1/OIF)
[2016-12-11 06:31] LABS: ATYPICAL LYMPH MOD (6-10%) (0-5%)
[2016-12-11 06:32] LABS: SMUDGE CELLS FEW
[2016-12-11 14:45] LABS: ASCORBIC ACID (UR NOT ORDER) NEG (NEG); BILIRUBIN, URINE NEGATIVE (NEG); KETONE, URINE NEGATIVE (NEG); LEUKOCYTE ESTERASE(NOT OR NEG (NEG); WBC (NOT ORDERED) (RFLEX) 3 (0-5)
[2016-12-12 05:43] LABS: HEMATOCRIT 24.5 % (36.0-48.0); HEMOGLOBIN 7.8 g/dL (12.0-16.0); MANUAL DIFF YES %; MEAN CORPUS HGB CONC 31.8 g/dL (32.0-36.0); MEAN CORPUSCULAR HEMOGLOB 31.3 pg (26.0-34.0); MEAN CORPUSCULAR VOLUME 98.4 fL (80-100); MEAN PLATELET VOLUME 9.1 fL (9.2-13.0); NUCLEATED RED BLOOD CELLS 0.2 /100WBC (0-0); PLATELET COUNT 83 10/3/uL (150-400); RBC DISTRIBUTION WIDTH 20.8 % (12.0-16.0); RED CELL COUNT 2.49 10/6/uL (4.0-5.6); WHITE BLOOD CELLS 22.3 10/3/uL (4.5-10.5)
[2016-12-12 05:50] LABS: A/G RATIO 0.8 (0.7-1.9); ALBUMIN 2.9 G/DL (3.5-5.0); ALKALINE PHOSPHATASE 54 U/L (45-117); BUN (BLOOD UREA NITROGEN) 12 MG/DL (6-23); CALCIUM, SERUM 7.8 MG/DL (8.5-10.4); CHLORIDE, SERUM 105 MMOL/L (96-112); CO2 (CARBON DIOXIDE) 24 MMOL/L (24-34); CREATININE 0.75 MG/DL (0.55-1.02); GFR AFRICAN AMERICAN 96 ML/MIN (>=60); GFR NON AFRICAN AMERICAN 83 ML/MIN (>=60); GLOBULIN 3.6 G/DL (2.5-4.1); GLUCOSE, SERUM 112 MG/DL (60-99); POTASSIUM, SERUM 3.9 MMOL/L (3.5-5.3); SGOT(AST) 32 U/L (5-40); SGPT(ALT) 51 U/L (5-65); SODIUM, SERUM 136 MMOL/L (135-148); TOTAL BILIRUBIN 0.7 MG/DL (0-1.2); TOTAL PROTEIN 6.5 G/DL (6.0-8.5)
[2016-12-12 06:16] LABS: LYMPHOCYTES 94 %; LYMPHOCYTES ABSOLUTE (CALC) 20.96 10/3/uL (0.67-4.30); MONOCYTES 5 %; MONOCYTES ABSOLUTE (CALC) 1.12 10/3/uL (0.21-1.20); NEUTROPHILS ABSOLUTE (CALC) 0.22 10/3/uL (2.02-8.40); PLATELET ESTIMATE DEC (ADEQUATE); SEGMENTED NEUTROPHIL (0) 1 %; TOTAL NUCLEATED CELLS 100
[2016-12-12 06:17] LABS: ANISOCYTOSIS 1+ (5-10/OIF) (0-5/OIF); ATYPICAL LYMPH MOD (6-10%) (0-5%)
[2016-12-13 02:37] LABS: HEMATOCRIT 23.5 % (36.0-48.0); HEMOGLOBIN 7.4 g/dL (12.0-16.0); MANUAL DIFF YES %; MEAN CORPUS HGB CONC 31.5 g/dL (32.0-36.0); MEAN CORPUSCULAR HEMOGLOB 31.1 pg (26.0-34.0); MEAN CORPUSCULAR VOLUME 98.7 fL (80-100); MEAN PLATELET VOLUME 9.4 fL (9.2-13.0); PLATELET COUNT 71 10/3/uL (150-400); RBC DISTRIBUTION WIDTH 20.8 % (12.0-16.0); RED CELL COUNT 2.38 10/6/uL (4.0-5.6); WHITE BLOOD CELLS 6.6 10/3/uL (4.5-10.5)
[2016-12-13 02:50] LABS: BUN (BLOOD UREA NITROGEN) 11 MG/DL (6-23); CALCIUM, SERUM 7.5 MG/DL (8.5-10.4); CHLORIDE, SERUM 109 MMOL/L (96-112); CO2 (CARBON DIOXIDE) 24 MMOL/L (24-34); GFR AFRICAN AMERICAN 105 ML/MIN (>=60); GFR NON AFRICAN AMERICAN 90 ML/MIN (>=60); GLUCOSE, SERUM 112 MG/DL (60-99); POTASSIUM, SERUM 4.5 MMOL/L (3.5-5.3); SODIUM, SERUM 141 MMOL/L (135-148)
[2016-12-13 03:00] LABS: LYMPHOCYTES 93 %; LYMPHOCYTES ABSOLUTE (CALC) 6.14 10/3/uL (0.67-4.30); MONOCYTES 3 %; NEUTROPHILS ABSOLUTE (CALC) 0.26 10/3/uL (2.02-8.40); SEGMENTED NEUTROPHIL (0) 4 %; TOTAL NUCLEATED CELLS 100
[2016-12-13 03:01] LABS: ANISOCYTOSIS 1+ (5-10/OIF) (0-5/OIF); PLATELET ESTIMATE DEC (ADEQUATE); SMUDGE CELLS RARE
[2016-12-14 06:45] LABS: HEMATOCRIT 23.2 % (36.0-48.0); HEMOGLOBIN 7.6 g/dL (12.0-16.0); MEAN CORPUS HGB CONC 32.8 g/dL (32.0-36.0); MEAN CORPUSCULAR HEMOGLOB 31.8 pg (26.0-34.0); MEAN CORPUSCULAR VOLUME 97.1 fL (80-100); MEAN PLATELET VOLUME 8.8 fL (9.2-13.0); RBC DISTRIBUTION WIDTH 20.5 % (12.0-16.0); RED CELL COUNT 2.39 10/6/uL (4.0-5.6)
[2016-12-14 06:46] LABS: MANUAL DIFF YES %; PLATELET COUNT 44 10/3/uL (150-400); WHITE BLOOD CELLS 1.1 10/3/uL (4.5-10.5)
[2016-12-14 06:51] LABS: A/G RATIO 0.6 (0.7-1.9); ALBUMIN 2.5 G/DL (3.5-5.0); ALKALINE PHOSPHATASE 59 U/L (45-117); BUN (BLOOD UREA NITROGEN) 11 MG/DL (6-23); CALCIUM, SERUM 7.6 MG/DL (8.5-10.4); CHLORIDE, SERUM 109 MMOL/L (96-112); CO2 (CARBON DIOXIDE) 22 MMOL/L (24-34); CREATININE 0.66 MG/DL (0.55-1.02); GFR AFRICAN AMERICAN 107 ML/MIN (>=60); GFR NON AFRICAN AMERICAN 92 ML/MIN (>=60); GLOBULIN 3.9 G/DL (2.5-4.1); GLUCOSE, SERUM 114 MG/DL (60-99); POTASSIUM, SERUM 4.1 MMOL/L (3.5-5.3); SGOT(AST) 84 U/L (5-40); SGPT(ALT) 85 U/L (5-65); SODIUM, SERUM 138 MMOL/L (135-148); TOTAL BILIRUBIN 0.7 MG/DL (0-1.2); TOTAL PROTEIN 6.4 G/DL (6.0-8.5)
[2016-12-14 07:40] LABS: ANISOCYTOSIS 1+ (5-10/OIF) (0-5/OIF); LYMPHOCYTES 76 %; LYMPHOCYTES ABSOLUTE (CALC) 0.84 10/3/uL (0.67-4.30); MONOCYTES 8 %; MONOCYTES ABSOLUTE (CALC) 0.09 10/3/uL (0.21-1.20); NEUTROPHILS ABSOLUTE (CALC) 0.18 10/3/uL (2.02-8.40); SEGMENTED NEUTROPHIL (0) 16 %; TOTAL NUCLEATED CELLS 50
[2016-12-14 07:41] LABS: ATYPICAL LYMPH FEW (3-5%) (0-5%)
[2016-12-15 05:07] LABS: MEAN CORPUS HGB CONC 32.6 g/dL (32.0-36.0); MEAN CORPUSCULAR HEMOGLOB 31.3 pg (26.0-34.0); MEAN CORPUSCULAR VOLUME 95.9 fL (80-100); MEAN PLATELET VOLUME 8.6 fL (9.2-13.0); RBC DISTRIBUTION WIDTH 20.8 % (12.0-16.0); RED CELL COUNT 1.95 10/6/uL (4.0-5.6)
[2016-12-15 05:14] LABS: HEMATOCRIT 18.7 % (36.0-48.0); HEMOGLOBIN 6.1 g/dL (12.0-16.0); PLATELET COUNT 24 10/3/uL (150-400); WHITE BLOOD CELLS 0.5 10/3/uL (4.5-10.5)
[2016-12-15 05:15] LABS: INTERNATIONAL NORMAL RATI 1.6 UNITS (-); PROTIME (NOT ORD) 18.5 SEC (12.0-14.5)
[2016-12-15 05:16] LABS: MANUAL DIFF YES %
[2016-12-15 05:19] LABS: A/G RATIO 0.6 (0.7-1.9); ALBUMIN 2.1 G/DL (3.5-5.0); ALKALINE PHOSPHATASE 55 U/L (45-117); BUN (BLOOD UREA NITROGEN) 11 MG/DL (6-23); CHLORIDE, SERUM 107 MMOL/L (96-112); CO2 (CARBON DIOXIDE) 25 MMOL/L (24-34); CREATININE 0.56 MG/DL (0.55-1.02); GFR AFRICAN AMERICAN 113 ML/MIN (>=60); GFR NON AFRICAN AMERICAN 97 ML/MIN (>=60); GLOBULIN 3.3 G/DL (2.5-4.1); GLUCOSE, SERUM 114 MG/DL (60-99); POTASSIUM, SERUM 3.8 MMOL/L (3.5-5.3); SGOT(AST) 108 U/L (5-40); SGPT(ALT) 105 U/L (5-65); SODIUM, SERUM 139 MMOL/L (135-148); TOTAL BILIRUBIN 0.7 MG/DL (0-1.2); TOTAL PROTEIN 5.4 G/DL (6.0-8.5)
[2016-12-15 05:20] LABS: CALCIUM, SERUM 6.8 MG/DL (8.5-10.4)
[2016-12-15 05:34] LABS: ANISOCYTOSIS 1+ (5-10/OIF) (0-5/OIF); LYMPHOCYTES 86 %; LYMPHOCYTES ABSOLUTE (CALC) 0.43 10/3/uL (0.67-4.30); NEUTROPHILS ABSOLUTE (CALC) 0.07 10/3/uL (2.02-8.40); SEGMENTED NEUTROPHIL (0) 14 %; TOTAL NUCLEATED CELLS 100
[2016-12-15 05:35] LABS: ELLIPTOCYTES 1+ (3-10/OIF) (0-2/OIF); RBC MORPHOLOGY ABN (NORMAL); TEARDROP SHAPED RBCS OCC (0-2/OIF)
[2016-12-16 06:19] LABS: INTERNATIONAL NORMAL RATI 1.6 UNITS (-); PROTIME (NOT ORD) 19.2 SEC (12.0-14.5)
[2016-12-16 06:24] LABS: HEMATOCRIT 18.1 % (36.0-48.0); HEMOGLOBIN 6.1 g/dL (12.0-16.0); MEAN CORPUS HGB CONC 33.7 g/dL (32.0-36.0); MEAN CORPUSCULAR HEMOGLOB 31.4 pg (26.0-34.0); MEAN CORPUSCULAR VOLUME 93.3 fL (80-100); MEAN PLATELET VOLUME 8.5 fL (9.2-13.0); RBC DISTRIBUTION WIDTH 21.1 % (12.0-16.0); RED CELL COUNT 1.94 10/6/uL (4.0-5.6); WHITE BLOOD CELLS 0.4 10/3/uL (4.5-10.5)
[2016-12-16 06:25] LABS: PLATELET COUNT 9 10/3/uL (150-400)
[2016-12-16 06:26] LABS: MANUAL DIFF YES %
[2016-12-16 06:31] LABS: A/G RATIO 0.6 (0.7-1.9); ALBUMIN 1.8 G/DL (3.5-5.0); ALKALINE PHOSPHATASE 45 U/L (45-117); BUN (BLOOD UREA NITROGEN) 13 MG/DL (6-23); CALCIUM, SERUM 6.6 MG/DL (8.5-10.4); CHLORIDE, SERUM 109 MMOL/L (96-112); CO2 (CARBON DIOXIDE) 25 MMOL/L (24-34); CREATININE 0.62 MG/DL (0.55-1.02); GFR AFRICAN AMERICAN 109 ML/MIN (>=60); GFR NON AFRICAN AMERICAN 94 ML/MIN (>=60); GLOBULIN 2.9 G/DL (2.5-4.1); GLUCOSE, SERUM 135 MG/DL (60-99); POTASSIUM, SERUM 3.3 MMOL/L (3.5-5.3); SGOT(AST) 110 U/L (5-40); SGPT(ALT) 95 U/L (5-65); SODIUM, SERUM 139 MMOL/L (135-148); TOTAL BILIRUBIN 0.7 MG/DL (0-1.2); TOTAL PROTEIN 4.7 G/DL (6.0-8.5)
[2016-12-16 07:16] LABS: ANISOCYTOSIS 1+ (5-10/OIF) (0-5/OIF); LYMPHOCYTES 80 %; LYMPHOCYTES ABSOLUTE (CALC) 0.32 10/3/uL (0.67-4.30); MONOCYTES 5 %; MONOCYTES ABSOLUTE (CALC) 0.02 10/3/uL (0.21-1.20); NEUTROPHILS ABSOLUTE (CALC) 0.06 10/3/uL (2.02-8.40); SEGMENTED NEUTROPHIL (0) 15 %; TOTAL NUCLEATED CELLS 20
[2016-12-16 07:17] LABS: HYPOCHROMIA 1+ (3-10/OIF) (0-2/OIF)
[2016-12-17 06:02] LABS: MEAN CORPUS HGB CONC 34.5 g/dL (32.0-36.0); MEAN CORPUSCULAR HEMOGLOB 31.2 pg (26.0-34.0); MEAN PLATELET VOLUME 10.2 fL (9.2-13.0); RBC DISTRIBUTION WIDTH 20.7 % (12.0-16.0)
[2016-12-17 06:03] LABS: HEMATOCRIT 23.5 % (36.0-48.0); HEMOGLOBIN 8.1 g/dL (12.0-16.0); MANUAL DIFF YES %; MEAN CORPUSCULAR VOLUME 90.4 fL (80-100); PLATELET COUNT 27 10/3/uL (150-400); WHITE BLOOD CELLS 0.2 10/3/uL (4.5-10.5)
[2016-12-17 06:09] LABS: A/G RATIO 0.7 (0.7-1.9); ALKALINE PHOSPHATASE 50 U/L (45-117); BUN (BLOOD UREA NITROGEN) 14 MG/DL (6-23); CHLORIDE, SERUM 106 MMOL/L (96-112); CO2 (CARBON DIOXIDE) 25 MMOL/L (24-34); GFR AFRICAN AMERICAN 110 ML/MIN (>=60); GFR NON AFRICAN AMERICAN 95 ML/MIN (>=60); GLUCOSE, SERUM 157 MG/DL (60-99); INTERNATIONAL NORMAL RATI 1.5 UNITS (-); POTASSIUM, SERUM 3.6 MMOL/L (3.5-5.3); PROTIME (NOT ORD) 17.7 SEC (12.0-14.5); SGOT(AST) 127 U/L (5-40); SGPT(ALT) 94 U/L (5-65); SODIUM, SERUM 139 MMOL/L (135-148)
[2016-12-17 06:10] LABS: CALCIUM, SERUM 6.6 MG/DL (8.5-10.4); TOTAL BILIRUBIN 1.4 MG/DL (0-1.2)
[2016-12-17 07:33] LABS: LYMPHOCYTES 74 %; LYMPHOCYTES ABSOLUTE (CALC) 0.15 10/3/uL (0.67-4.30); MONOCYTES 21 %; MONOCYTES ABSOLUTE (CALC) 0.04 10/3/uL (0.21-1.20); NEUTROPHILS ABSOLUTE (CALC) 0.01 10/3/uL (2.02-8.40); SEGMENTED NEUTROPHIL (0) 5 %; TOTAL NUCLEATED CELLS 100
[2016-12-17 07:34] LABS: ANISOCYTOSIS 1+ (5-10/OIF) (0-5/OIF)
[2016-12-17 07:35] LABS: HELMET CELLS OCC (0-2/OIF); POLYCHROMASIA 1+ (2-5/OIF) (0-1/OIF); TEARDROP SHAPED RBCS OCC (0-2/OIF)
[2016-12-17 07:36] LABS: HYPOCHROMIA 1+ (3-10/OIF) (0-2/OIF); SPHEROCYTES OCC (0-2/OIF)
[2016-12-17 07:37] LABS: MACROCYTES 1+ (5-10/OIF) (0-5/OIF); MICROCYTES 1+ (5-10/OIF) (0-5/OIF)
[2016-12-18 06:41] LABS: HEMATOCRIT 24.6 % (36.0-48.0); HEMOGLOBIN 8.3 g/dL (12.0-16.0); MEAN CORPUS HGB CONC 33.7 g/dL (32.0-36.0); MEAN CORPUSCULAR HEMOGLOB 30.6 pg (26.0-34.0); MEAN CORPUSCULAR VOLUME 90.8 fL (80-100); MEAN PLATELET VOLUME 9.8 fL (9.2-13.0); RBC DISTRIBUTION WIDTH 20.7 % (12.0-16.0); RED CELL COUNT 2.71 10/6/uL (4.0-5.6)
[2016-12-18 06:44] LABS: MANUAL DIFF YES %; PLATELET COUNT 15 10/3/uL (150-400); WHITE BLOOD CELLS 0.2 10/3/uL (4.5-10.5)
[2016-12-18 06:49] LABS: INTERNATIONAL NORMAL RATI 1.4 UNITS (-)
[2016-12-18 07:01] LABS: A/G RATIO 0.5 (0.7-1.9); ALBUMIN 1.7 G/DL (3.5-5.0); ALKALINE PHOSPHATASE 49 U/L (45-117); BUN (BLOOD UREA NITROGEN) 13 MG/DL (6-23); CHLORIDE, SERUM 111 MMOL/L (96-112); CO2 (CARBON DIOXIDE) 26 MMOL/L (24-34); CREATININE 0.54 MG/DL (0.55-1.02); GFR AFRICAN AMERICAN 114 ML/MIN (>=60); GFR NON AFRICAN AMERICAN 98 ML/MIN (>=60); GLOBULIN 3.3 G/DL (2.5-4.1); GLUCOSE, SERUM 211 MG/DL (60-99); POTASSIUM, SERUM 3.8 MMOL/L (3.5-5.3); SGOT(AST) 123 U/L (5-40); SGPT(ALT) 88 U/L (5-65); SODIUM, SERUM 143 MMOL/L (135-148); TOTAL BILIRUBIN 0.7 MG/DL (0-1.2)
[2016-12-18 07:42] LABS: LYMPHOCYTES 80 %; LYMPHOCYTES ABSOLUTE (CALC) 0.16 10/3/uL (0.67-4.30); MONOCYTES 20 %; MONOCYTES ABSOLUTE (CALC) 0.04 10/3/uL (0.21-1.20); TOTAL NUCLEATED CELLS 20
[2016-12-18 07:44] LABS: ANISOCYTOSIS 1+ (5-10/OIF) (0-5/OIF); POLYCHROMASIA 1+ (2-5/OIF) (0-1/OIF); TEARDROP SHAPED RBCS OCC (0-2/OIF)
[2016-12-18 07:46] LABS: ELLIPTOCYTES 1+ (3-10/OIF) (0-2/OIF); HELMET CELLS OCC (0-2/OIF); MICROCYTES 1+ (5-10/OIF) (0-5/OIF)
[2016-12-18 07:47] LABS: SCHISTOCYTES OCC (0-2/OIF); SPHEROCYTES OCC (0-2/OIF)
[2016-12-19 04:47] LABS: HEMOGLOBIN 9.8 g/dL (12.0-16.0); MEAN CORPUS HGB CONC 34.1 g/dL (32.0-36.0); MEAN CORPUSCULAR HEMOGLOB 31.1 pg (26.0-34.0); MEAN CORPUSCULAR VOLUME 91.1 fL (80-100); RBC DISTRIBUTION WIDTH 20.3 % (12.0-16.0); RED CELL COUNT 3.15 10/6/uL (4.0-5.6)
[2016-12-19 04:48] LABS: HEMATOCRIT 28.7 % (36.0-48.0); PLATELET COUNT 10 10/3/uL (150-400); WHITE BLOOD CELLS 0.3 10/3/uL (4.5-10.5)
[2016-12-19 04:49] LABS: MANUAL DIFF YES %
[2016-12-19 04:53] LABS: INTERNATIONAL NORMAL RATI 1.3 UNITS (-); PROTIME (NOT ORD) 16.1 SEC (12.0-14.5)
[2016-12-19 04:59] LABS: A/G RATIO 0.6 (0.7-1.9); CALCIUM, SERUM 7.3 MG/DL (8.5-10.4); CHLORIDE, SERUM 110 MMOL/L (96-112); CO2 (CARBON DIOXIDE) 28 MMOL/L (24-34); CREATININE 0.62 MG/DL (0.55-1.02); GFR AFRICAN AMERICAN 109 ML/MIN (>=60); GFR NON AFRICAN AMERICAN 94 ML/MIN (>=60); GLOBULIN 3.6 G/DL (2.5-4.1); POTASSIUM, SERUM 3.7 MMOL/L (3.5-5.3); SGOT(AST) 160 U/L (5-40); SGPT(ALT) 126 U/L (5-65); SODIUM, SERUM 145 MMOL/L (135-148); TOTAL BILIRUBIN 1.1 MG/DL (0-1.2); TOTAL PROTEIN 5.6 G/DL (6.0-8.5)
[2016-12-19 05:00] LABS: ALKALINE PHOSPHATASE 60 U/L (45-117); BUN (BLOOD UREA NITROGEN) 17 MG/DL (6-23); GLUCOSE, SERUM 148 MG/DL (60-99)
[2016-12-19 05:32] LABS: ANISOCYTOSIS 1+ (5-10/OIF) (0-5/OIF); LYMPHOCYTES 80 %; LYMPHOCYTES ABSOLUTE (CALC) 0.24 10/3/uL (0.67-4.30); MONOCYTES 20 %; MONOCYTES ABSOLUTE (CALC) 0.06 10/3/uL (0.21-1.20); TOTAL NUCLEATED CELLS 25
[2016-12-20 05:58] LABS: HEMOGLOBIN 8.5 g/dL (12.0-16.0); INTERNATIONAL NORMAL RATI 1.4 UNITS (-); MEAN CORPUS HGB CONC 33.3 g/dL (32.0-36.0); MEAN CORPUSCULAR HEMOGLOB 30.7 pg (26.0-34.0); MEAN CORPUSCULAR VOLUME 92.1 fL (80-100); MEAN PLATELET VOLUME 10.7 fL (9.2-13.0); PROTIME (NOT ORD) 17.1 SEC (12.0-14.5); RED CELL COUNT 2.77 10/6/uL (4.0-5.6)
[2016-12-20 05:59] LABS: HEMATOCRIT 25.5 % (36.0-48.0); MANUAL DIFF YES %; PLATELET COUNT 40 10/3/uL (150-400); WHITE BLOOD CELLS 0.2 10/3/uL (4.5-10.5)
[2016-12-20 06:11] LABS: A/G RATIO 0.6 (0.7-1.9); ALBUMIN 1.8 G/DL (3.5-5.0); ALKALINE PHOSPHATASE 56 U/L (45-117); BUN (BLOOD UREA NITROGEN) 15 MG/DL (6-23); CALCIUM, SERUM 7.1 MG/DL (8.5-10.4); CHLORIDE, SERUM 110 MMOL/L (96-112); CO2 (CARBON DIOXIDE) 28 MMOL/L (24-34); CREATININE 0.45 MG/DL (0.55-1.02); GFR AFRICAN AMERICAN 121 ML/MIN (>=60); GFR NON AFRICAN AMERICAN 104 ML/MIN (>=60); GLOBULIN 3.2 G/DL (2.5-4.1); GLUCOSE, SERUM 152 MG/DL (60-99); POTASSIUM, SERUM 3.2 MMOL/L (3.5-5.3); SGOT(AST) 126 U/L (5-40); SGPT(ALT) 117 U/L (5-65); SODIUM, SERUM 143 MMOL/L (135-148); TOTAL BILIRUBIN 1.5 MG/DL (0-1.2)
[2016-12-20 06:44] LABS: IMMATURE GRANS ABSOLUTE (CALC) 0.01 10/3/uL (0.0-0.11); LYMPHOCYTES 55 %; LYMPHOCYTES ABSOLUTE (CALC) 0.11 10/3/uL (0.67-4.30); MONOCYTES 35 %; MONOCYTES ABSOLUTE (CALC) 0.07 10/3/uL (0.21-1.20); MYELOCYTES 5 %; NEUTROPHILS ABSOLUTE (CALC) 0.01 10/3/uL (2.02-8.40); SEGMENTED NEUTROPHIL (0) 5 %; TOTAL NUCLEATED CELLS 20
[2016-12-20 06:45] LABS: ANISOCYTOSIS 1+ (5-10/OIF) (0-5/OIF); ELLIPTOCYTES 1+ (3-10/OIF) (0-2/OIF); TEARDROP SHAPED RBCS OCC (0-2/OIF)
[2016-12-21 04:06] LABS: HEMOGLOBIN 7.7 g/dL (12.0-16.0); MEAN CORPUS HGB CONC 33.8 g/dL (32.0-36.0); MEAN CORPUSCULAR HEMOGLOB 30.9 pg (26.0-34.0); MEAN CORPUSCULAR VOLUME 91.6 fL (80-100); MEAN PLATELET VOLUME 10.7 fL (9.2-13.0); RBC DISTRIBUTION WIDTH 19.4 % (12.0-16.0); RED CELL COUNT 2.49 10/6/uL (4.0-5.6)
[2016-12-21 04:08] LABS: HEMATOCRIT 22.8 % (36.0-48.0); MANUAL DIFF YES %; PLATELET COUNT 19 10/3/uL (150-400); WHITE BLOOD CELLS 0.2 10/3/uL (4.5-10.5)
[2016-12-21 04:13] LABS: INTERNATIONAL NORMAL RATI 1.5 UNITS (-); PROTIME (NOT ORD) 17.5 SEC (12.0-14.5)
[2016-12-21 04:24] LABS: A/G RATIO 0.5 (0.7-1.9); ALBUMIN 1.6 G/DL (3.5-5.0); ALKALINE PHOSPHATASE 51 U/L (45-117); BUN (BLOOD UREA NITROGEN) 14 MG/DL (6-23); CALCIUM, SERUM 6.5 MG/DL (8.5-10.4); CHLORIDE, SERUM 107 MMOL/L (96-112); CO2 (CARBON DIOXIDE) 32 MMOL/L (24-34); CREATININE 0.44 MG/DL (0.55-1.02); GFR AFRICAN AMERICAN 122 ML/MIN (>=60); GFR NON AFRICAN AMERICAN 105 ML/MIN (>=60); GLUCOSE, SERUM 131 MG/DL (60-99); POTASSIUM, SERUM 2.6 MMOL/L (3.5-5.3); SGOT(AST) 77 U/L (5-40); SGPT(ALT) 85 U/L (5-65); SODIUM, SERUM 139 MMOL/L (135-148); TOTAL BILIRUBIN 1.2 MG/DL (0-1.2); TOTAL PROTEIN 4.6 G/DL (6.0-8.5)
[2016-12-21 04:37] LABS: LYMPHOCYTES 100 %; TOTAL NUCLEATED CELLS 100
[2016-12-21 04:38] LABS: RBC MORPHOLOGY NORM (NORMAL)
[2016-12-21 08:42] LABS: RETICULOCYTE COUNT 0.1 % (0.5-2.9); RETICULOCYTE COUNT ABSOLUTE 2.2 10/3/uL (20.2-119.8)
[2016-12-22 04:35] LABS: HEMATOCRIT 21.8 % (36.0-48.0); HEMOGLOBIN 7.3 g/dL (12.0-16.0); MEAN CORPUS HGB CONC 33.5 g/dL (32.0-36.0); MEAN CORPUSCULAR HEMOGLOB 30.7 pg (26.0-34.0); MEAN CORPUSCULAR VOLUME 91.6 fL (80-100); RBC DISTRIBUTION WIDTH 19.2 % (12.0-16.0); RED CELL COUNT 2.38 10/6/uL (4.0-5.6)
[2016-12-22 04:36] LABS: PLATELET COUNT 11 10/3/uL (150-400); WHITE BLOOD CELLS 0.2 10/3/uL (4.5-10.5)
[2016-12-22 04:37] LABS: MANUAL DIFF YES %
[2016-12-22 04:55] LABS: BUN (BLOOD UREA NITROGEN) 14 MG/DL (6-23); CHLORIDE, SERUM 106 MMOL/L (96-112); CO2 (CARBON DIOXIDE) 30 MMOL/L (24-34); CREATININE 0.34 MG/DL (0.55-1.02); GFR AFRICAN AMERICAN 133 ML/MIN (>=60); GFR NON AFRICAN AMERICAN 114 ML/MIN (>=60); GLUCOSE, SERUM 130 MG/DL (60-99); SODIUM, SERUM 141 MMOL/L (135-148)
[2016-12-22 04:56] LABS: CALCIUM, SERUM 6.5 MG/DL (8.5-10.4); POTASSIUM, SERUM 2.8 MMOL/L (3.5-5.3)
[2016-12-22 05:26] LABS: ANISOCYTOSIS 1+ (5-10/OIF) (0-5/OIF); IMMATURE MONONUCLEAR 1 % (0); LYMPHOCYTES 80 %; LYMPHOCYTES ABSOLUTE (CALC) 0.16 10/3/uL (0.67-4.30); MONOCYTES 18 %; MONOCYTES ABSOLUTE (CALC) 0.04 10/3/uL (0.21-1.20); SEGMENTED NEUTROPHIL (0) 1 %; TOTAL NUCLEATED CELLS 100
[2016-12-22 09:25] LABS: RETICULOCYTE COUNT 0.1 % (0.5-2.9); RETICULOCYTE COUNT ABSOLUTE 1.9 10/3/uL (20.2-119.8)
[2016-12-23 01:34] LABS: HEMOGLOBIN 7.4 g/dL (12.0-16.0); MEAN CORPUS HGB CONC 33.6 g/dL (32.0-36.0); MEAN CORPUSCULAR HEMOGLOB 30.7 pg (26.0-34.0); MEAN CORPUSCULAR VOLUME 91.3 fL (80-100); RED CELL COUNT 2.41 10/6/uL (4.0-5.6)
[2016-12-23 01:35] LABS: PLATELET COUNT 6 10/3/uL (150-400); WHITE BLOOD CELLS 0.2 10/3/uL (4.5-10.5)
[2016-12-23 01:37] LABS: MANUAL DIFF YES %
[2016-12-23 01:40] LABS: INTERNATIONAL NORMAL RATI 1.5 UNITS (-); PROTIME (NOT ORD) 18.3 SEC (12.0-14.5)
[2016-12-23 01:54] LABS: A/G RATIO 0.4 (0.7-1.9); ALBUMIN 1.4 G/DL (3.5-5.0); ALKALINE PHOSPHATASE 57 U/L (45-117); BUN (BLOOD UREA NITROGEN) 15 MG/DL (6-23); CHLORIDE, SERUM 106 MMOL/L (96-112); CO2 (CARBON DIOXIDE) 28 MMOL/L (24-34); CREATININE 0.39 MG/DL (0.55-1.02); GFR AFRICAN AMERICAN 127 ML/MIN (>=60); GFR NON AFRICAN AMERICAN 109 ML/MIN (>=60); GLOBULIN 3.2 G/DL (2.5-4.1); GLUCOSE, SERUM 108 MG/DL (60-99); SGOT(AST) 69 U/L (5-40); SGPT(ALT) 91 U/L (5-65); SODIUM, SERUM 140 MMOL/L (135-148); TOTAL PROTEIN 4.6 G/DL (6.0-8.5)
[2016-12-23 01:55] LABS: CALCIUM, SERUM 6.3 MG/DL (8.5-10.4); POTASSIUM, SERUM 2.9 MMOL/L (3.5-5.3); TOTAL BILIRUBIN 2.3 MG/DL (0-1.2)
[2016-12-23 03:32] LABS: LYMPHOCYTES 79 %; LYMPHOCYTES ABSOLUTE (CALC) 0.16 10/3/uL (0.67-4.30); MONOCYTES 14 %; MONOCYTES ABSOLUTE (CALC) 0.03 10/3/uL (0.21-1.20); NEUTROPHILS ABSOLUTE (CALC) 0.01 10/3/uL (2.02-8.40); SEGMENTED NEUTROPHIL (0) 7 %; TOTAL NUCLEATED CELLS 14
[2016-12-23 03:33] LABS: ANISOCYTOSIS 1+ (5-10/OIF) (0-5/OIF)
[2016-12-24 04:32] LABS: INTERNATIONAL NORMAL RATI 1.8 UNITS (-); PROTIME (NOT ORD) 20.3 SEC (12.0-14.5)
[2016-12-24 04:38] LABS: A/G RATIO 0.5 (0.7-1.9); ALBUMIN 1.4 G/DL (3.5-5.0); ALKALINE PHOSPHATASE 64 U/L (45-117); BUN (BLOOD UREA NITROGEN) 18 MG/DL (6-23); CHLORIDE, SERUM 104 MMOL/L (96-112); CO2 (CARBON DIOXIDE) 29 MMOL/L (24-34); GFR AFRICAN AMERICAN 110 ML/MIN (>=60); GFR NON AFRICAN AMERICAN 95 ML/MIN (>=60); GLOBULIN 3.1 G/DL (2.5-4.1); GLUCOSE, SERUM 114 MG/DL (60-99); SGOT(AST) 57 U/L (5-40); SGPT(ALT) 84 U/L (5-65); SODIUM, SERUM 138 MMOL/L (135-148); TOTAL BILIRUBIN 2.3 MG/DL (0-1.2); TOTAL PROTEIN 4.5 G/DL (6.0-8.5)
[2016-12-24 04:39] LABS: CALCIUM, SERUM 5.9 MG/DL (8.5-10.4)
[2016-12-24 04:54] LABS: MEAN CORPUSCULAR HEMOGLOB 30.7 pg (26.0-34.0); MEAN CORPUSCULAR VOLUME 90.4 fL (80-100); RBC DISTRIBUTION WIDTH 19.2 % (12.0-16.0); RED CELL COUNT 2.28 10/6/uL (4.0-5.6); WHITE BLOOD CELLS 0.1 10/3/uL (4.5-10.5)
[2016-12-24 04:55] LABS: HEMATOCRIT 20.6 % (36.0-48.0); PLATELET COUNT 25 10/3/uL (150-400)
[2016-12-24 04:56] LABS: MANUAL DIFF YES %
[2016-12-24 06:50] LABS: TOTAL NUCLEATED CELLS 100
[2016-12-24 06:51] LABS: ANISOCYTOSIS 1+ (5-10/OIF) (0-5/OIF); LYMPHOCYTES 100 %
[2016-12-25 04:58] LABS: HEMATOCRIT 20.9 % (36.0-48.0); HEMOGLOBIN 7.1 g/dL (12.0-16.0); MEAN CORPUSCULAR HEMOGLOB 30.6 pg (26.0-34.0); MEAN CORPUSCULAR VOLUME 90.1 fL (80-100); PLATELET COUNT 13 10/3/uL (150-400); RBC DISTRIBUTION WIDTH 19.2 % (12.0-16.0); RED CELL COUNT 2.32 10/6/uL (4.0-5.6); WHITE BLOOD CELLS 0.1 10/3/uL (4.5-10.5)
[2016-12-25 04:59] LABS: MANUAL DIFF YES %
[2016-12-25 05:05] LABS: INTERNATIONAL NORMAL RATI 1.7 UNITS (-); PROTIME (NOT ORD) 19.4 SEC (12.0-14.5)
[2016-12-25 05:13] LABS: A/G RATIO 0.4 (0.7-1.9); ALBUMIN 1.3 G/DL (3.5-5.0); ALKALINE PHOSPHATASE 67 U/L (45-117); CHLORIDE, SERUM 103 MMOL/L (96-112); CO2 (CARBON DIOXIDE) 26 MMOL/L (24-34); CREATININE 0.68 MG/DL (0.55-1.02); GFR AFRICAN AMERICAN 106 ML/MIN (>=60); GFR NON AFRICAN AMERICAN 91 ML/MIN (>=60); GLOBULIN 3.2 G/DL (2.5-4.1); GLUCOSE, SERUM 135 MG/DL (60-99); SGOT(AST) 74 U/L (5-40); SGPT(ALT) 91 U/L (5-65); SODIUM, SERUM 135 MMOL/L (135-148); TOTAL BILIRUBIN 2.2 MG/DL (0-1.2); TOTAL PROTEIN 4.5 G/DL (6.0-8.5)
[2016-12-25 05:14] LABS: BUN (BLOOD UREA NITROGEN) 24 MG/DL (6-23); CALCIUM, SERUM 5.9 MG/DL (8.5-10.4); POTASSIUM, SERUM 2.8 MMOL/L (3.5-5.3)
[2016-12-25 05:46] LABS: ANISOCYTOSIS 1+ (5-10/OIF) (0-5/OIF); LYMPHOCYTES 80 %; LYMPHOCYTES ABSOLUTE (CALC) 0.08 10/3/uL (0.67-4.30); MONOCYTES 20 %; MONOCYTES ABSOLUTE (CALC) 0.02 10/3/uL (0.21-1.20); TOTAL NUCLEATED CELLS 25
[2016-12-25 05:47] LABS: TEARDROP SHAPED RBCS OCC (0-2/OIF)
[2016-12-26 05:19] LABS: INTERNATIONAL NORMAL RATI 1.8 UNITS (-); PROTIME (NOT ORD) 20.5 SEC (12.0-14.5)
[2016-12-26 05:23] LABS: HEMATOCRIT 21.9 % (36.0-48.0); HEMOGLOBIN 7.4 g/dL (12.0-16.0); MEAN CORPUS HGB CONC 33.8 g/dL (32.0-36.0); MEAN CORPUSCULAR HEMOGLOB 30.5 pg (26.0-34.0); MEAN CORPUSCULAR VOLUME 90.1 fL (80-100); RBC DISTRIBUTION WIDTH 19.3 % (12.0-16.0); RED CELL COUNT 2.43 10/6/uL (4.0-5.6)
[2016-12-26 05:24] LABS: MANUAL DIFF YES %; PLATELET COUNT 5 10/3/uL (150-400); WHITE BLOOD CELLS 0.1 10/3/uL (4.5-10.5)
[2016-12-26 05:26] LABS: A/G RATIO 0.4 (0.7-1.9); ALBUMIN 1.3 G/DL (3.5-5.0); ALKALINE PHOSPHATASE 81 U/L (45-117); BUN (BLOOD UREA NITROGEN) 32 MG/DL (6-23); CHLORIDE, SERUM 108 MMOL/L (96-112); CO2 (CARBON DIOXIDE) 25 MMOL/L (24-34); CREATININE 0.86 MG/DL (0.55-1.02); GFR AFRICAN AMERICAN 82 ML/MIN (>=60); GFR NON AFRICAN AMERICAN 70 ML/MIN (>=60); GLOBULIN 3.4 G/DL (2.5-4.1); GLUCOSE, SERUM 136 MG/DL (60-99); POTASSIUM, SERUM 3.2 MMOL/L (3.5-5.3); SGOT(AST) 111 U/L (5-40); SGPT(ALT) 126 U/L (5-65); SODIUM, SERUM 142 MMOL/L (135-148); TOTAL PROTEIN 4.7 G/DL (6.0-8.5)
[2016-12-26 08:42] LABS: BAND NEUTROPHILS 10 %; LYMPHOCYTES 90 %; LYMPHOCYTES ABSOLUTE (CALC) 0.09 10/3/uL (0.67-4.30); NEUTROPHILS ABSOLUTE (CALC) 0.01 10/3/uL (2.02-8.40); TOTAL NUCLEATED CELLS 10
[2016-12-26 08:44] LABS: ANISOCYTOSIS 1+ (5-10/OIF) (0-5/OIF); HELMET CELLS OCC (0-2/OIF); SPHEROCYTES FEW (3-10/OIF); TEARDROP SHAPED RBCS OCC (0-2/OIF)
[2016-12-26 08:45] LABS: HYPOCHROMIA 1+ (3-10/OIF) (0-2/OIF)
[2016-12-26 09:54] LABS: HEPATITIS B SURFACE ANTIGEN NON-REACTIVE (NON-REACT)
[2016-12-26 09:56] LABS: HEPATITIS C ANTIBODY NON-REACTIVE (NON-REACT)
[2016-12-26 09:57] LABS: HEPATITIS B CORE AB IGM NON-REACTIVE (NON-REAC)
[2016-12-26 09:58] LABS: HEP A ANTIBODY IGM NON-REACTIVE (NON-REACT)
[2016-12-27 04:55] LABS: HEMATOCRIT 21.9 % (36.0-48.0); HEMOGLOBIN 7.6 g/dL (12.0-16.0); MANUAL DIFF YES %; MEAN CORPUS HGB CONC 34.7 g/dL (32.0-36.0); MEAN CORPUSCULAR HEMOGLOB 30.8 pg (26.0-34.0); MEAN CORPUSCULAR VOLUME 88.7 fL (80-100); PLATELET COUNT 5 10/3/uL (150-400); RBC DISTRIBUTION WIDTH 19.5 % (12.0-16.0); RED CELL COUNT 2.47 10/6/uL (4.0-5.6); WHITE BLOOD CELLS 0.1 10/3/uL (4.5-10.5)
[2016-12-27 05:01] LABS: INTERNATIONAL NORMAL RATI 1.7 UNITS (-); PROTIME (NOT ORD) 20.2 SEC (12.0-14.5)
[2016-12-27 05:17] LABS: A/G RATIO 0.4 (0.7-1.9); ALBUMIN 1.3 G/DL (3.5-5.0); ALKALINE PHOSPHATASE 89 U/L (45-117); CHLORIDE, SERUM 106 MMOL/L (96-112); CO2 (CARBON DIOXIDE) 23 MMOL/L (24-34); CREATININE 1.17 MG/DL (0.55-1.02); GFR AFRICAN AMERICAN 56 ML/MIN (>=60); GFR NON AFRICAN AMERICAN 49 ML/MIN (>=60); GLOBULIN 3.4 G/DL (2.5-4.1); GLUCOSE, SERUM 137 MG/DL (60-99); SGOT(AST) 167 U/L (5-40); SGPT(ALT) 170 U/L (5-65); SODIUM, SERUM 138 MMOL/L (135-148); TOTAL BILIRUBIN 3.3 MG/DL (0-1.2); TOTAL PROTEIN 4.7 G/DL (6.0-8.5)
[2016-12-27 05:18] LABS: BUN (BLOOD UREA NITROGEN) 42 MG/DL (6-23)
[2016-12-27 05:19] LABS: CALCIUM, SERUM 6.3 MG/DL (8.5-10.4)
[2016-12-27 05:21] LABS: ANISOCYTOSIS 1+ (5-10/OIF) (0-5/OIF); LYMPHOCYTES 90 %; LYMPHOCYTES ABSOLUTE (CALC) 0.09 10/3/uL (0.67-4.30); NEUTROPHILS ABSOLUTE (CALC) 0.01 10/3/uL (2.02-8.40); SEGMENTED NEUTROPHIL (0) 10 %; TOTAL NUCLEATED CELLS 100
[2016-12-27 05:22] LABS: ELLIPTOCYTES 1+ (3-10/OIF) (0-2/OIF); HYPOCHROMIA 1+ (3-10/OIF) (0-2/OIF)
[2016-12-28 05:20] LABS: HEMATOCRIT 21.7 % (36.0-48.0); HEMOGLOBIN 7.6 g/dL (12.0-16.0); MEAN CORPUSCULAR HEMOGLOB 30.9 pg (26.0-34.0); MEAN CORPUSCULAR VOLUME 88.2 fL (80-100); PLATELET COUNT 2 10/3/uL (150-400); RBC DISTRIBUTION WIDTH 19.8 % (12.0-16.0); RED CELL COUNT 2.46 10/6/uL (4.0-5.6); WHITE BLOOD CELLS 0.1 10/3/uL (4.5-10.5)
[2016-12-28 05:21] LABS: MANUAL DIFF YES %
[2016-12-28 05:24] LABS: INTERNATIONAL NORMAL RATI 1.8 UNITS (-); PROTIME (NOT ORD) 20.9 SEC (12.0-14.5)
[2016-12-28 05:35] LABS: A/G RATIO 0.3 (0.7-1.9); ALBUMIN 1.2 G/DL (3.5-5.0); ALKALINE PHOSPHATASE 108 U/L (45-117); BUN (BLOOD UREA NITROGEN) 58 MG/DL (6-23); CALCIUM, SERUM 6.3 MG/DL (8.5-10.4); CHLORIDE, SERUM 108 MMOL/L (96-112); CO2 (CARBON DIOXIDE) 20 MMOL/L (24-34); CREATININE 1.61 MG/DL (0.55-1.02); GFR AFRICAN AMERICAN 38 ML/MIN (>=60); GFR NON AFRICAN AMERICAN 33 ML/MIN (>=60); GLOBULIN 3.6 G/DL (2.5-4.1); GLUCOSE, SERUM 149 MG/DL (60-99); POTASSIUM, SERUM 3.7 MMOL/L (3.5-5.3); SGOT(AST) 153 U/L (5-40); SGPT(ALT) 186 U/L (5-65); SODIUM, SERUM 140 MMOL/L (135-148); TOTAL BILIRUBIN 3.3 MG/DL (0-1.2); TOTAL PROTEIN 4.8 G/DL (6.0-8.5)
[2016-12-28 06:29] LABS: ANISOCYTOSIS 1+ (5-10/OIF) (0-5/OIF); LYMPHOCYTES 70 %; LYMPHOCYTES ABSOLUTE (CALC) 0.07 10/3/uL (0.67-4.30); NEUTROPHILS ABSOLUTE (CALC) 0.03 10/3/uL (2.02-8.40); SEGMENTED NEUTROPHIL (0) 30 %; TOTAL NUCLEATED CELLS 10
[2016-12-28 06:30] LABS: POLYCHROMASIA 1+ (2-5/OIF) (0-1/OIF)
[2016-12-28 19:23] LABS: ALLENS TEST Pos; BE (BASE EXCESS) -4.9 MEQ/L (0 +/- 2.5); CARBOXYHEMOGLOBIN 0.9 % (0-3); DEVICE NC; HCO3 (ACTUAL BICARBONATE) 18.5 MEQ/L (23-27); HEMOBLOGIN CONTENT 7.4 G/DL (12-16); INSTRUMENT SERIAL # 8083; METHEMOGLOBIN 1.1 % (0-3); O2 CONTENT 9.4 VOL% (18-24); OPERATOR ID 35390; PCO2 (CO2 TENSION) 27 MMHG (35-45); PO2 (O2 TENSION) 66 MMHG (79-93); SAMPLE Arterial; pH 7.45 (7.37-7.43)
[2016-12-28 20:48] LABS: WBC (NOT ORDERED) (RFLEX) 0 (0-5)
[2016-12-28 22:30] LABS: ASCORBIC ACID (UR NOT ORDER) NEG (NEG); BILIRUBIN, URINE NEGATIVE (NEG); KETONE, URINE TRACE MG/DL (NEG); LEUKOCYTE ESTERASE(NOT OR NEG (NEG)
[2016-12-29 00:30] LABS: HEMOGLOBIN 5.9 g/dL (12.0-16.0); MEAN CORPUS HGB CONC 34.7 g/dL (32.0-36.0); MEAN CORPUSCULAR HEMOGLOB 30.9 pg (26.0-34.0); PLATELET COUNT 1 10/3/uL (150-400); RBC DISTRIBUTION WIDTH 19.9 % (12.0-16.0); RED CELL COUNT 1.91 10/6/uL (4.0-5.6); WHITE BLOOD CELLS 0.1 10/3/uL (4.5-10.5)
[2016-12-29 00:33] LABS: MANUAL DIFF YES %
[2016-12-29 00:36] LABS: A/G RATIO 0.6 (0.7-1.9); ALKALINE PHOSPHATASE 109 U/L (45-117); CHLORIDE, SERUM 110 MMOL/L (96-112); CO2 (CARBON DIOXIDE) 20 MMOL/L (24-34); GLOBULIN 3.1 G/DL (2.5-4.1); GLUCOSE, SERUM 159 MG/DL (60-99); PHOSPHORUS, SERUM 3.5 MG/DL (2.5-4.5); POTASSIUM, SERUM 4.1 MMOL/L (3.5-5.3); SGOT(AST) 161 U/L (5-40); SGPT(ALT) 172 U/L (5-65); SODIUM, SERUM 141 MMOL/L (135-148); TOTAL BILIRUBIN 3.1 MG/DL (0-1.2)
[2016-12-29 00:38] LABS: ALBUMIN 1.9 G/DL (3.5-5.0); BUN (BLOOD UREA NITROGEN) 74 MG/DL (6-23); CALCIUM, SERUM 6.2 MG/DL (8.5-10.4); CREATININE 2.12 MG/DL (0.55-1.02); GFR AFRICAN AMERICAN 27 ML/MIN (>=60); GFR NON AFRICAN AMERICAN 24 ML/MIN (>=60)
[2016-12-29 00:39] LABS: INTERNATIONAL NORMAL RATI 1.9 UNITS (-); PARTIAL THROMBO TIME 36.2 SEC (22.5-37.2); PROTIME (NOT ORD) 21.6 SEC (12.0-14.5)
[2016-12-29 00:49] LABS: D-DIMER QUANTITATIVE 13.27 ug/mLFEU (< 0.50)
[2016-12-29 02:05] LABS: ANISOCYTOSIS 1+ (5-10/OIF) (0-5/OIF); LYMPHOCYTES 100 %; TOTAL NUCLEATED CELLS 11
[2016-12-29 04:05] LABS: ALLENS TEST Pos; BE (BASE EXCESS) -4.8 MEQ/L (0 +/- 2.5); CARBOXYHEMOGLOBIN 1.6 % (0-3); DEVICE NC; HCO3 (ACTUAL BICARBONATE) 18.9 MEQ/L (23-27); HEMOBLOGIN CONTENT 6.5 G/DL (12-16); INSTRUMENT SERIAL # 8083; METHEMOGLOBIN 1.1 % (0-3); O2 CONTENT 8.6 VOL% (18-24); OPERATOR ID 17589; PCO2 (CO2 TENSION) 29 MMHG (35-45); PO2 (O2 TENSION) 73 MMHG (79-93); SAMPLE Arterial; pH 7.43 (7.37-7.43)
[2016-12-29 07:59] LABS: HEMATOCRIT 22.7 % (36.0-48.0); MEAN CORPUS HGB CONC 35.2 g/dL (32.0-36.0); MEAN CORPUSCULAR HEMOGLOB 31.5 pg (26.0-34.0); MEAN CORPUSCULAR VOLUME 89.4 fL (80-100); RBC DISTRIBUTION WIDTH 18.5 % (12.0-16.0); RED CELL COUNT 2.54 10/6/uL (4.0-5.6); WHITE BLOOD CELLS 0.1 10/3/uL (4.5-10.5)
[2016-12-29 08:00] LABS: MANUAL DIFF YES %; PLATELET COUNT 0 10/3/uL (150-400)
[2016-12-29 08:04] LABS: INTERNATIONAL NORMAL RATI 1.9 UNITS (-); PROTIME (NOT ORD) 21.7 SEC (12.0-14.5)
[2016-12-29 09:24] LABS: ANISOCYTOSIS 1+ (5-10/OIF) (0-5/OIF); BURR CELLS 1+ (3-10/OIF) (0-2/OIF); ELLIPTOCYTES 1+ (3-10/OIF) (0-2/OIF); LYMPHOCYTES 90 %; LYMPHOCYTES ABSOLUTE (CALC) 0.09 10/3/uL (0.67-4.30); MACROCYTES 1+ (5-10/OIF) (0-5/OIF); MONOCYTES 10 %; MONOCYTES ABSOLUTE (CALC) 0.01 10/3/uL (0.21-1.20); POIKILOCYTOSIS 1+ (5-10/OIF) (0-5/OIF); TOTAL NUCLEATED CELLS 40
[2016-12-29 15:37] LABS: MEAN CORPUS HGB CONC 35.4 g/dL (32.0-36.0); MEAN CORPUSCULAR HEMOGLOB 31.2 pg (26.0-34.0); MEAN CORPUSCULAR VOLUME 88.2 fL (80-100); MEAN PLATELET VOLUME 8.6 fL (9.2-13.0); RBC DISTRIBUTION WIDTH 18.8 % (12.0-16.0); RED CELL COUNT 2.21 10/6/uL (4.0-5.6)
[2016-12-29 15:38] LABS: WHITE BLOOD CELLS 0.1 10/3/uL (4.5-10.5)
[2016-12-29 15:39] LABS: HEMATOCRIT 19.5 % (36.0-48.0); HEMOGLOBIN 6.9 g/dL (12.0-16.0); PLATELET COUNT 37 10/3/uL (150-400)
[2016-12-29 15:41] LABS: MANUAL DIFF YES %
[2016-12-29 15:46] LABS: INTERNATIONAL NORMAL RATI 1.8 UNITS (-); PROTIME (NOT ORD) 20.3 SEC (12.0-14.5)
[2016-12-29 16:30] LABS: ANISOCYTOSIS 1+ (5-10/OIF) (0-5/OIF); LYMPHOCYTES 100 %; TOTAL NUCLEATED CELLS 3
[2016-12-29 23:53] LABS: MEAN CORPUS HGB CONC 35.5 g/dL (32.0-36.0); MEAN CORPUSCULAR HEMOGLOB 31.4 pg (26.0-34.0); MEAN CORPUSCULAR VOLUME 88.3 fL (80-100); MEAN PLATELET VOLUME 9.4 fL (9.2-13.0); RBC DISTRIBUTION WIDTH 18.1 % (12.0-16.0)
[2016-12-29 23:56] LABS: HEMATOCRIT 24.2 % (36.0-48.0); HEMOGLOBIN 8.6 g/dL (12.0-16.0); PLATELET COUNT 17 10/3/uL (150-400); RED CELL COUNT 2.74 10/6/uL (4.0-5.6); WHITE BLOOD CELLS 0.1 10/3/uL (4.5-10.5)
[2016-12-29 23:57] LABS: MANUAL DIFF YES %
[2016-12-30 00:01] LABS: INTERNATIONAL NORMAL RATI 1.6 UNITS (-); PROTIME (NOT ORD) 19.1 SEC (12.0-14.5)
[2016-12-30 01:04] LABS: ANISOCYTOSIS 1+ (5-10/OIF) (0-5/OIF); BASOPHILS 5 %; BASOPHILS ABSOLUTE (CALC) 0.01 10/3/uL (0.0-0.16); LYMPHOCYTES 85 %; LYMPHOCYTES ABSOLUTE (CALC) 0.09 10/3/uL (0.67-4.30); NEUTROPHILS ABSOLUTE (CALC) 0.01 10/3/uL (2.02-8.40); SEGMENTED NEUTROPHIL (0) 10 %; TOTAL NUCLEATED CELLS 20
[2016-12-30 01:05] LABS: BURR CELLS 1+ (3-10/OIF) (0-2/OIF); ELLIPTOCYTES 1+ (3-10/OIF) (0-2/OIF)
[2016-12-30 04:33] LABS: ALLENS TEST Pos; CARBOXYHEMOGLOBIN 0.7 % (0-3); DEVICE NC; HCO3 (ACTUAL BICARBONATE) 18.1 MEQ/L (23-27); HEMOBLOGIN CONTENT 9.3 G/DL (12-16); INSTRUMENT SERIAL # 8083; METHEMOGLOBIN 0.5 % (0-3); O2 CONTENT 12.2 VOL% (18-24); OPERATOR ID 33449; PCO2 (CO2 TENSION) 31 MMHG (35-45); PO2 (O2 TENSION) 73 MMHG (79-93); SAMPLE Arterial; pH 7.39 (7.37-7.43)
[2016-12-30 04:59] LABS: HEMATOCRIT 24.2 % (36.0-48.0); HEMOGLOBIN 8.6 g/dL (12.0-16.0); MEAN CORPUS HGB CONC 35.5 g/dL (32.0-36.0); MEAN CORPUSCULAR HEMOGLOB 31.3 pg (26.0-34.0); RBC DISTRIBUTION WIDTH 18.2 % (12.0-16.0); RED CELL COUNT 2.75 10/6/uL (4.0-5.6)
[2016-12-30 05:06] LABS: PLATELET COUNT 11 10/3/uL (150-400); WHITE BLOOD CELLS 0.1 10/3/uL (4.5-10.5)
[2016-12-30 05:07] LABS: MANUAL DIFF YES %
[2016-12-30 05:09] LABS: INTERNATIONAL NORMAL RATI 1.6 UNITS (-)
[2016-12-30 05:39] LABS: ANISOCYTOSIS 1+ (5-10/OIF) (0-5/OIF); LYMPHOCYTES 60 %; LYMPHOCYTES ABSOLUTE (CALC) 0.06 10/3/uL (0.67-4.30); NEUTROPHILS ABSOLUTE (CALC) 0.04 10/3/uL (2.02-8.40); SEGMENTED NEUTROPHIL (0) 40 %; SPHEROCYTES FEW (3-10/OIF); TOTAL NUCLEATED CELLS 100
[2016-12-30 05:56] LABS: A/G RATIO 0.6 (0.7-1.9); ALBUMIN 1.9 G/DL (3.5-5.0); ALKALINE PHOSPHATASE 113 U/L (45-117); BUN (BLOOD UREA NITROGEN) 101 MG/DL (6-23); CHLORIDE, SERUM 110 MMOL/L (96-112); CO2 (CARBON DIOXIDE) 19 MMOL/L (24-34); DIRECT BILIRUBIN 2.9 MG/DL (0.0-0.4); GLUCOSE, SERUM 151 MG/DL (60-99); INDIRECT BILIRUBIN(NOT ORDER) 1.1 MG/DL (0.1-0.9); POTASSIUM, SERUM 4.8 MMOL/L (3.5-5.3); SGOT(AST) 143 U/L (5-40); SGPT(ALT) 160 U/L (5-65); SODIUM, SERUM 142 MMOL/L (135-148); TOTAL PROTEIN 4.9 G/DL (6.0-8.5)
[2016-12-30 05:57] LABS: CALCIUM, SERUM 6.2 MG/DL (8.5-10.4); CREATININE 2.82 MG/DL (0.55-1.02); GFR AFRICAN AMERICAN 19 ML/MIN (>=60); GFR NON AFRICAN AMERICAN 17 ML/MIN (>=60); PHOSPHORUS, SERUM 4.6 MG/DL (2.5-4.5)
[2016-12-30 14:17] LABS: HEMATOCRIT 22.9 % (36.0-48.0); HEMOGLOBIN 8.1 g/dL (12.0-16.0); MEAN CORPUS HGB CONC 35.4 g/dL (32.0-36.0); MEAN CORPUSCULAR VOLUME 87.7 fL (80-100); MEAN PLATELET VOLUME 10.5 fL (9.2-13.0); RBC DISTRIBUTION WIDTH 18.5 % (12.0-16.0); RED CELL COUNT 2.61 10/6/uL (4.0-5.6)
[2016-12-30 14:20] LABS: MANUAL DIFF YES %; PLATELET COUNT 30 10/3/uL (150-400); WHITE BLOOD CELLS 0.1 10/3/uL (4.5-10.5)
[2016-12-30 14:34] LABS: ANISOCYTOSIS 1+ (5-10/OIF) (0-5/OIF); LYMPHOCYTES 80 %; LYMPHOCYTES ABSOLUTE (CALC) 0.08 10/3/uL (0.67-4.30); MONOCYTES 10 %; MONOCYTES ABSOLUTE (CALC) 0.01 10/3/uL (0.21-1.20); NEUTROPHILS ABSOLUTE (CALC) 0.01 10/3/uL (2.02-8.40); OVALOCYTES 1+ (3-10/OIF) (0-2/OIF); SEGMENTED NEUTROPHIL (0) 10 %; TOTAL NUCLEATED CELLS 100
[2016-12-30 14:35] LABS: TEARDROP SHAPED RBCS OCC (0-2/OIF)
[2016-12-30 16:37] LABS: ALLENS TEST Pos; BE (BASE EXCESS) -5.4 MEQ/L (0 +/- 2.5); CARBOXYHEMOGLOBIN 0.9 % (0-3); DEVICE NC; HCO3 (ACTUAL BICARBONATE) 19.6 MEQ/L (23-27); HEMOBLOGIN CONTENT 8.1 G/DL (12-16); INSTRUMENT SERIAL # 8083; METHEMOGLOBIN 0.9 % (0-3); O2 CONTENT 10.7 VOL% (18-24); PCO2 (CO2 TENSION) 36 MMHG (35-45); PO2 (O2 TENSION) 79 MMHG (79-93); SAMPLE Arterial; pH 7.35 (7.37-7.43)
[2016-12-30 19:19] LABS: HEMATOCRIT 23.3 % (36.0-48.0); HEMOGLOBIN 8.3 g/dL (12.0-16.0); MEAN CORPUS HGB CONC 35.6 g/dL (32.0-36.0); MEAN CORPUSCULAR HEMOGLOB 31.4 pg (26.0-34.0); MEAN CORPUSCULAR VOLUME 88.3 fL (80-100); MEAN PLATELET VOLUME 10.5 fL (9.2-13.0); RBC DISTRIBUTION WIDTH 18.6 % (12.0-16.0); RED CELL COUNT 2.64 10/6/uL (4.0-5.6)
[2016-12-30 19:21] LABS: PLATELET COUNT 15 10/3/uL (150-400); WHITE BLOOD CELLS 0.1 10/3/uL (4.5-10.5)
[2016-12-30 19:22] LABS: MANUAL DIFF YES %
[2016-12-30 20:09] LABS: LYMPHOCYTES ABSOLUTE (CALC) 0.09 10/3/uL (0.67-4.30); NEUTROPHILS ABSOLUTE (CALC) 0.01 10/3/uL (2.02-8.40); TOTAL NUCLEATED CELLS 15
[2016-12-30 20:10] LABS: ANISOCYTOSIS 1+ (5-10/OIF) (0-5/OIF); HYPOCHROMIA 1+ (3-10/OIF) (0-2/OIF); POIKILOCYTOSIS 1+ (5-10/OIF) (0-5/OIF)
[2016-12-30 20:12] LABS: LYMPHOCYTES 87 %; SEGMENTED NEUTROPHIL (0) 13 %
[2016-12-31 01:13] LABS: HEMATOCRIT 21.3 % (36.0-48.0); HEMOGLOBIN 7.5 g/dL (12.0-16.0); MEAN CORPUS HGB CONC 35.2 g/dL (32.0-36.0); MEAN CORPUSCULAR HEMOGLOB 31.4 pg (26.0-34.0); MEAN CORPUSCULAR VOLUME 89.1 fL (80-100); RBC DISTRIBUTION WIDTH 18.5 % (12.0-16.0); RED CELL COUNT 2.39 10/6/uL (4.0-5.6)
[2016-12-31 01:19] LABS: PLATELET COUNT 5 10/3/uL (150-400); WHITE BLOOD CELLS 0.1 10/3/uL (4.5-10.5)
[2016-12-31 01:20] LABS: MANUAL DIFF YES %
[2016-12-31 01:33] LABS: INTERNATIONAL NORMAL RATI 1.6 UNITS (-); PARTIAL THROMBO TIME 35.3 SEC (22.5-37.2); PROTIME (NOT ORD) 18.8 SEC (12.0-14.5)
[2016-12-31 01:37] LABS: LYMPHOCYTES 90 %; LYMPHOCYTES ABSOLUTE (CALC) 0.09 10/3/uL (0.67-4.30); NEUTROPHILS ABSOLUTE (CALC) 0.01 10/3/uL (2.02-8.40); SEGMENTED NEUTROPHIL (0) 10 %; TOTAL NUCLEATED CELLS 10
[2016-12-31 01:44] LABS: ANISOCYTOSIS 1+ (5-10/OIF) (0-5/OIF)
[2016-12-31 03:41] LABS: ALLENS TEST Pos; BE (BASE EXCESS) -3.7 MEQ/L (0 +/- 2.5); CARBOXYHEMOGLOBIN 0.6 % (0-3); DEVICE NC; HCO3 (ACTUAL BICARBONATE) 20.6 MEQ/L (23-27); HEMOBLOGIN CONTENT 8.6 G/DL (12-16); INSTRUMENT SERIAL # 8083; METHEMOGLOBIN 0.7 % (0-3); O2 CONTENT 11.4 VOL% (18-24); OPERATOR ID 16469; PCO2 (CO2 TENSION) 34 MMHG (35-45); PO2 (O2 TENSION) 77 MMHG (79-93); SAMPLE Arterial
[2016-12-31 04:28] LABS: HEMATOCRIT 21.2 % (36.0-48.0); HEMOGLOBIN 7.4 g/dL (12.0-16.0); MANUAL DIFF YES %; MEAN CORPUS HGB CONC 34.9 g/dL (32.0-36.0); MEAN CORPUSCULAR HEMOGLOB 31.2 pg (26.0-34.0); MEAN CORPUSCULAR VOLUME 89.5 fL (80-100); PLATELET COUNT 4 10/3/uL (150-400); RBC DISTRIBUTION WIDTH 18.7 % (12.0-16.0); RED CELL COUNT 2.37 10/6/uL (4.0-5.6); WHITE BLOOD CELLS 0.1 10/3/uL (4.5-10.5)
[2016-12-31 04:36] LABS: INTERNATIONAL NORMAL RATI 1.7 UNITS (-); PROTIME (NOT ORD) 19.6 SEC (12.0-14.5)
[2016-12-31 04:49] LABS: ALKALINE PHOSPHATASE 122 U/L (45-117); CHLORIDE, SERUM 110 MMOL/L (96-112); CO2 (CARBON DIOXIDE) 21 MMOL/L (24-34); CREATININE 2.81 MG/DL (0.55-1.02); GFR AFRICAN AMERICAN 19 ML/MIN (>=60); GFR NON AFRICAN AMERICAN 17 ML/MIN (>=60); GLUCOSE, SERUM 170 MG/DL (60-99); PHOSPHORUS, SERUM 4.5 MG/DL (2.5-4.5); POTASSIUM, SERUM 4.6 MMOL/L (3.5-5.3); SGOT(AST) 117 U/L (5-40); SGPT(ALT) 131 U/L (5-65); SODIUM, SERUM 142 MMOL/L (135-148); TOTAL PROTEIN 4.8 G/DL (6.0-8.5)
[2016-12-31 04:50] LABS: BUN (BLOOD UREA NITROGEN) 103 MG/DL (6-23); CALCIUM, SERUM 6.7 MG/DL (8.5-10.4); DIRECT BILIRUBIN 2.7 MG/DL (0.0-0.4); INDIRECT BILIRUBIN(NOT ORDER) 0.8 MG/DL (0.1-0.9); TOTAL BILIRUBIN 3.5 MG/DL (0-1.2)
[2016-12-31 05:05] LABS: LYMPHOCYTES 83 %; LYMPHOCYTES ABSOLUTE (CALC) 0.08 10/3/uL (0.67-4.30); MONOCYTES 11 %; MONOCYTES ABSOLUTE (CALC) 0.01 10/3/uL (0.21-1.20); NEUTROPHILS ABSOLUTE (CALC) 0.01 10/3/uL (2.02-8.40); SEGMENTED NEUTROPHIL (0) 6 %; TOTAL NUCLEATED CELLS 18
[2016-12-31 05:06] LABS: BURR CELLS 1+ (3-10/OIF) (0-2/OIF)
[2016-12-31 09:57] LABS: HEMATOCRIT 22.1 % (36.0-48.0); HEMOGLOBIN 7.7 g/dL (12.0-16.0); MEAN CORPUS HGB CONC 34.8 g/dL (32.0-36.0); MEAN CORPUSCULAR HEMOGLOB 31.3 pg (26.0-34.0); MEAN CORPUSCULAR VOLUME 89.8 fL (80-100); RBC DISTRIBUTION WIDTH 18.6 % (12.0-16.0); RED CELL COUNT 2.46 10/6/uL (4.0-5.6)
[2016-12-31 09:59] LABS: PLATELET COUNT 2 10/3/uL (150-400); WHITE BLOOD CELLS 0.1 10/3/uL (4.5-10.5)
[2016-12-31 10:00] LABS: MANUAL DIFF YES %
[2016-12-31 10:29] LABS: LYMPHOCYTES 40 %; LYMPHOCYTES ABSOLUTE (CALC) 0.04 10/3/uL (0.67-4.30); MONOCYTES 20 %; MONOCYTES ABSOLUTE (CALC) 0.02 10/3/uL (0.21-1.20); NEUTROPHILS ABSOLUTE (CALC) 0.04 10/3/uL (2.02-8.40); SEGMENTED NEUTROPHIL (0) 40 %; TOTAL NUCLEATED CELLS 5
[2016-12-31 10:31] LABS: HYPOCHROMIA 1+ (3-10/OIF) (0-2/OIF); MICROCYTES 1+ (5-10/OIF) (0-5/OIF)
[2016-12-31 15:57] LABS: HEMATOCRIT 23.7 % (36.0-48.0); MEAN CORPUS HGB CONC 33.8 g/dL (32.0-36.0); MEAN CORPUSCULAR HEMOGLOB 30.4 pg (26.0-34.0); MEAN CORPUSCULAR VOLUME 90.1 fL (80-100); MEAN PLATELET VOLUME 9.3 fL (9.2-13.0); RBC DISTRIBUTION WIDTH 18.7 % (12.0-16.0); RED CELL COUNT 2.63 10/6/uL (4.0-5.6)
[2016-12-31 15:59] LABS: WHITE BLOOD CELLS 0.1 10/3/uL (4.5-10.5)
[2016-12-31 16:00] LABS: MANUAL DIFF YES %; PLATELET COUNT 45 10/3/uL (150-400)
[2016-12-31 16:52] LABS: ANISOCYTOSIS 1+ (5-10/OIF) (0-5/OIF); BAND NEUTROPHILS 4 %; HYPOCHROMIA 1+ (3-10/OIF) (0-2/OIF); LYMPHOCYTES 92 %; LYMPHOCYTES ABSOLUTE (CALC) 0.09 10/3/uL (0.67-4.30); NEUTROPHILS ABSOLUTE (CALC) 0.01 10/3/uL (2.02-8.40); TOTAL NUCLEATED CELLS 26
[2016-12-31 16:54] LABS: SEGMENTED NEUTROPHIL (0) 4 %
[2016-12-31 20:10] LABS: INSTRUMENT SERIAL # 8083; pH 7.38 (7.37-7.43)
[2016-12-31 20:11] LABS: ALLENS TEST Pos; BE (BASE EXCESS) 0.1 MEQ/L (0 +/- 2.5); CARBOXYHEMOGLOBIN 0.8 % (0-3); DEVICE FT; HCO3 (ACTUAL BICARBONATE) 25.3 MEQ/L (23-27); HEMOBLOGIN CONTENT 7.6 G/DL (12-16); METHEMOGLOBIN 0.9 % (0-3); O2 CONTENT 10.4 VOL% (18-24); OPERATOR ID 13415; PCO2 (CO2 TENSION) 44 MMHG (35-45); PO2 (O2 TENSION) 106 MMHG (79-93); SAMPLE Arterial
[2016-12-31 22:04] LABS: HEMATOCRIT 21.8 % (36.0-48.0); HEMOGLOBIN 7.4 g/dL (12.0-16.0); MEAN CORPUS HGB CONC 33.9 g/dL (32.0-36.0); MEAN CORPUSCULAR HEMOGLOB 31.1 pg (26.0-34.0); MEAN CORPUSCULAR VOLUME 91.6 fL (80-100); MEAN PLATELET VOLUME 10.8 fL (9.2-13.0); RBC DISTRIBUTION WIDTH 18.8 % (12.0-16.0); RED CELL COUNT 2.38 10/6/uL (4.0-5.6)
[2016-12-31 22:05] LABS: MANUAL DIFF YES %; PLATELET COUNT 20 10/3/uL (150-400); WHITE BLOOD CELLS 0.1 10/3/uL (4.5-10.5)
[2016-12-31 22:37] LABS: ANISOCYTOSIS 1+ (5-10/OIF) (0-5/OIF); LYMPHOCYTES 90 %; LYMPHOCYTES ABSOLUTE (CALC) 0.09 10/3/uL (0.67-4.30); MONOCYTES 5 %; MONOCYTES ABSOLUTE (CALC) 0.01 10/3/uL (0.21-1.20); NEUTROPHILS ABSOLUTE (CALC) 0.01 10/3/uL (2.02-8.40); TOTAL NUCLEATED CELLS 20
[2016-12-31 22:38] LABS: POIKILOCYTOSIS 1+ (5-10/OIF) (0-5/OIF)
[2016-12-31 22:39] LABS: SEGMENTED NEUTROPHIL (0) 5 %
[2017-01-01 02:36] LABS: HEMATOCRIT 21.3 % (36.0-48.0); HEMOGLOBIN 7.3 g/dL (12.0-16.0); MEAN CORPUS HGB CONC 34.3 g/dL (32.0-36.0); MEAN CORPUSCULAR HEMOGLOB 31.3 pg (26.0-34.0); MEAN CORPUSCULAR VOLUME 91.4 fL (80-100); MEAN PLATELET VOLUME 9.3 fL (9.2-13.0); RBC DISTRIBUTION WIDTH 18.7 % (12.0-16.0); RED CELL COUNT 2.33 10/6/uL (4.0-5.6)
[2017-01-01 02:37] LABS: PLATELET COUNT 8 10/3/uL (150-400); WHITE BLOOD CELLS 0.1 10/3/uL (4.5-10.5)
[2017-01-01 02:38] LABS: MANUAL DIFF YES %
[2017-01-01 02:42] LABS: INTERNATIONAL NORMAL RATI 1.7 UNITS (-); PROTIME (NOT ORD) 19.4 SEC (12.0-14.5)
[2017-01-01 02:50] LABS: ALBUMIN 2.2 G/DL (3.5-5.0); CALCIUM, SERUM 7.4 MG/DL (8.5-10.4); CHLORIDE, SERUM 110 MMOL/L (96-112); CREATININE 2.32 MG/DL (0.55-1.02); GFR AFRICAN AMERICAN 25 ML/MIN (>=60); GFR NON AFRICAN AMERICAN 21 ML/MIN (>=60); GLUCOSE, SERUM 187 MG/DL (60-99); PHOSPHORUS, SERUM 4.1 MG/DL (2.5-4.5); POTASSIUM, SERUM 4.4 MMOL/L (3.5-5.3); SODIUM, SERUM 143 MMOL/L (135-148)
[2017-01-01 02:53] LABS: BUN (BLOOD UREA NITROGEN) 79 MG/DL (6-23); CO2 (CARBON DIOXIDE) 26 MMOL/L (24-34)
[2017-01-01 03:24] LABS: LYMPHOCYTES 89 %; LYMPHOCYTES ABSOLUTE (CALC) 0.09 10/3/uL (0.67-4.30); MONOCYTES 11 %; MONOCYTES ABSOLUTE (CALC) 0.01 10/3/uL (0.21-1.20); TOTAL NUCLEATED CELLS 100
[2017-01-01 03:25] LABS: RBC MORPHOLOGY NORM (NORMAL)
[2017-01-01 12:08] LABS: BE (BASE EXCESS) -1.4 MEQ/L (0 +/- 2.5); CARBOXYHEMOGLOBIN 0.6 % (0-3); HCO3 (ACTUAL BICARBONATE) 25.3 MEQ/L (23-27); HEMOBLOGIN CONTENT 7.9 G/DL (12-16); INSTRUMENT SERIAL # 8083; METHEMOGLOBIN 0.9 % (0-3); O2 CONTENT 10.7 VOL% (18-24); PCO2 (CO2 TENSION) 54 MMHG (35-45); PO2 (O2 TENSION) 98 MMHG (79-93); pH 7.29 (7.37-7.43)
[2017-01-01 12:09] LABS: ALLENS TEST Pos; DEVICE Face Tent @ 10 L/M; OPERATOR ID 14382; SAMPLE Arterial
[2017-01-01 17:31] LABS: ALLENS TEST Pos; BE (BASE EXCESS) -3.6 MEQ/L (0 +/- 2.5); CARBOXYHEMOGLOBIN 0.9 % (0-3); HCO3 (ACTUAL BICARBONATE) 22.9 MEQ/L (23-27); HEMOBLOGIN CONTENT 7.7 G/DL (12-16); INSTRUMENT SERIAL # 8083; MODE BIPAP; OPERATOR ID 14382; PCO2 (CO2 TENSION) 49 MMHG (35-45); PO2 (O2 TENSION) 72 MMHG (79-93); SAMPLE Arterial; pH 7.29 (7.37-7.43)
[2017-01-01 19:32] LABS: BE (BASE EXCESS) -5.3 MEQ/L (0 +/- 2.5); CARBOXYHEMOGLOBIN 0.4 % (0-3); HCO3 (ACTUAL BICARBONATE) 22.7 MEQ/L (23-27); INSTRUMENT SERIAL # 8083; PCO2 (CO2 TENSION) 61 MMHG (35-45); PO2 (O2 TENSION) 240 MMHG (79-93); pH 7.19 (7.37-7.43)
[2017-01-01 19:33] LABS: ALLENS TEST Pos; MODE CMV; O2 CONTENT 11.6 VOL% (18-24); OPERATOR ID 17370; SAMPLE Arterial; TIDAL VOLUME 450 ML
[2017-01-01 23:27] LABS: INSTRUMENT SERIAL # 8083
[2017-01-01 23:28] LABS: ALLENS TEST Pos; BE (BASE EXCESS) -4.2 MEQ/L (0 +/- 2.5); CARBOXYHEMOGLOBIN 0.6 % (0-3); HCO3 (ACTUAL BICARBONATE) 21.3 MEQ/L (23-27); METHEMOGLOBIN 1.3 % (0-3); MODE CMV; O2 CONTENT 10.3 VOL% (18-24); OPERATOR ID 35785; PCO2 (CO2 TENSION) 41 MMHG (35-45); PO2 (O2 TENSION) 68 MMHG (79-93); SAMPLE Arterial; TIDAL VOLUME 450 ML; pH 7.34 (7.37-7.43)
[2017-01-02 04:03] LABS: ALLENS TEST Pos; BE (BASE EXCESS) -7.2 MEQ/L (0 +/- 2.5); CARBOXYHEMOGLOBIN 0.4 % (0-3); HCO3 (ACTUAL BICARBONATE) 19.8 MEQ/L (23-27); HEMOBLOGIN CONTENT 7.4 G/DL (12-16); INSTRUMENT SERIAL # 8083; METHEMOGLOBIN 1.9 % (0-3); MODE CMV; O2 CONTENT 9.7 VOL% (18-24); OPERATOR ID 17370; PCO2 (CO2 TENSION) 48 MMHG (35-45); PO2 (O2 TENSION) 84 MMHG (79-93); SAMPLE Arterial; TIDAL VOLUME 450 ML; pH 7.24 (7.37-7.43)
[2017-01-02 05:00] LABS: HEMATOCRIT 21.8 % (36.0-48.0); HEMOGLOBIN 7.4 g/dL (12.0-16.0); MEAN CORPUS HGB CONC 33.9 g/dL (32.0-36.0); MEAN CORPUSCULAR HEMOGLOB 31.4 pg (26.0-34.0); MEAN CORPUSCULAR VOLUME 92.4 fL (80-100); RBC DISTRIBUTION WIDTH 19.2 % (12.0-16.0); RED CELL COUNT 2.36 10/6/uL (4.0-5.6); WHITE BLOOD CELLS 0.1 10/3/uL (4.5-10.5)
[2017-01-02 05:01] LABS: PLATELET COUNT 1 10/3/uL (150-400)
[2017-01-02 05:03] LABS: MANUAL DIFF YES %
[2017-01-02 05:05] LABS: INTERNATIONAL NORMAL RATI 1.9 UNITS (-); PROTIME (NOT ORD) 21.4 SEC (12.0-14.5)
[2017-01-02 05:18] LABS: CALCIUM, SERUM 7.8 MG/DL (8.5-10.4); CHLORIDE, SERUM 107 MMOL/L (96-112); CO2 (CARBON DIOXIDE) 22 MMOL/L (24-34); GFR AFRICAN AMERICAN 20 ML/MIN (>=60); GFR NON AFRICAN AMERICAN 17 ML/MIN (>=60); GLUCOSE, SERUM 196 MG/DL (60-99); PHOSPHORUS, SERUM 4.7 MG/DL (2.5-4.5); POTASSIUM, SERUM 5.1 MMOL/L (3.5-5.3); SGOT(AST) 67 U/L (5-40); SGPT(ALT) 91 U/L (5-65); SODIUM, SERUM 139 MMOL/L (135-148); TOTAL PROTEIN 4.6 G/DL (6.0-8.5)
[2017-01-02 05:25] LABS: A/G RATIO 0.6 (0.7-1.9); ALBUMIN 1.7 G/DL (3.5-5.0); BUN (BLOOD UREA NITROGEN) 104 MG/DL (6-23); GLOBULIN 2.9 G/DL (2.5-4.1)
[2017-01-02 05:27] LABS: ALKALINE PHOSPHATASE 107 U/L (45-117); TOTAL BILIRUBIN 4.1 MG/DL (0-1.2)
[2017-01-02 06:12] LABS: ALLENS TEST Pos; BE (BASE EXCESS) -8.5 MEQ/L (0 +/- 2.5); HCO3 (ACTUAL BICARBONATE) 18.6 MEQ/L (23-27); HEMOBLOGIN CONTENT 8.2 G/DL (12-16); INSTRUMENT SERIAL # 8083; METHEMOGLOBIN 1.9 % (0-3); MODE CMV; O2 CONTENT 10.7 VOL% (18-24); OPERATOR ID 35785; PCO2 (CO2 TENSION) 47 MMHG (35-45); PO2 (O2 TENSION) 82 MMHG (79-93); SAMPLE Arterial; TIDAL VOLUME 400 ML; pH 7.22 (7.37-7.43)
[2017-01-02 07:21] LABS: LYMPHOCYTES 97 %; MONOCYTES 3 %; TOTAL NUCLEATED CELLS 30
[2017-01-02 07:22] LABS: SCHISTOCYTES OCC (0-2/OIF)
[2017-01-02 10:06] LABS: ALLENS TEST Pos; BE (BASE EXCESS) -6.5 MEQ/L (0 +/- 2.5); CARBOXYHEMOGLOBIN 0.2 % (0-3); HCO3 (ACTUAL BICARBONATE) 21.3 MEQ/L (23-27); HEMOBLOGIN CONTENT 6.3 G/DL (12-16); INSTRUMENT SERIAL # 8083; METHEMOGLOBIN 3.2 % (0-3); MODE CMV; O2 CONTENT 7.6 VOL% (18-24); OPERATOR ID 14382; PCO2 (CO2 TENSION) 58 MMHG (35-45); PO2 (O2 TENSION) 64 MMHG (79-93); SAMPLE Arterial; TIDAL VOLUME 400 ML; pH 7.18 (7.37-7.43)
[2017-01-05 08:54] LABS: HLA-B B*18 (B18)
[2017-01-05 08:55] LABS: HLA-B B*40 (B61)
[2017-01-12 13:40] LABS: HLA-A A*24 (A24)
[2017-01-12 13:43] LABS: HLA-A A*32 (A32)
== END 2017-01-02 21:35 | disposition expired | DRG 846 ==
LOC: 4EA 13:31 → MIC 12-28 22:17
PROVIDERS: Internal Medicine; Internal Medicine Critical Care Medicine; Internal Medicine Hematology & Oncology; Internal Medicine Infectious Disease; Internal Medicine Nephrology; Internal Medicine Pulmonary Disease; Nurse Practitioner Family
PROC: 07DR3ZX Extraction of Iliac Bone Marrow, Percutaneous Approach, Diagnostic (ICD-10-PCS; principal; 2016-12-22)
PROC: 05HM33Z Insertion of Infusion Device into Right Internal Jugular Vein, Percutaneous Approach (ICD-10-PCS; 2016-12-30)
PROC: 0BH17EZ Insertion of Endotracheal Airway into Trachea, Via Natural or Artificial Opening (ICD-10-PCS; 2017-01-01)
PROC: 5A1945Z Respiratory Ventilation, 24-96 Consecutive Hours (ICD-10-PCS; 2017-01-01)
DX: Z51.11 Encounter for antineoplastic chemotherapy (principal); J96.01 Acute respiratory failure with hypoxia; N17.9 Acute kidney failure, unspecified; A41.9 Sepsis, unspecified organism; D61.818 Other pancytopenia; E46 Unspecified protein-calorie malnutrition; E87.2 Acidosis; C92.Z0 Other myeloid leukemia not having achieved remission; I50.9 Heart failure, unspecified; I11.0 Hypertensive heart disease with heart failure; E11.9 Type 2 diabetes mellitus without complications; E03.9 Hypothyroidism, unspecified; K59.09 Other constipation; E78.5 Hyperlipidemia, unspecified; Z90.49 Acquired absence of other specified parts of digestive tract; Z86.010 Personal history of colon polyps; Z98.890 Other specified postprocedural states; Z92.21 Personal history of antineoplastic chemotherapy; Z90.710 Acquired absence of both cervix and uterus; Z88.0 Allergy status to penicillin; Z88.2 Allergy status to sulfonamides; Z88.5 Allergy status to narcotic agent; Z88.8 Allergy status to other drugs, medicaments and biological substances; Z80.0 Family history of malignant neoplasm of digestive organs; Z79.899 Other long term (current) drug therapy; Z79.84 Long term (current) use of oral hypoglycemic drugs; Z79.82 Long term (current) use of aspirin; Z83.3 Family history of diabetes mellitus; Z82.49 Family history of ischemic heart disease and other diseases of the circulatory system
CPT/HCPCS: 31720; 36415; 36569; 36600; 70450; 71010; 76705; 76775; 80048; 80053; 80069; 80074; 80076; 80202; 81001; 81373; 82140; 82272; 82805; 82962; 83605; 83735; 84100; 84132; 84300; 84439; 84443; 84550; 85025; 85045; 85049; 85379; 85384; 85610; 85730; 86850; 86900; 86901; 86920; 87015; 87040; 87070; 87102; 87106; 87116; 87150; 87186; 87389; 87493; 87493-59; 87641; 88305; 88311; 88313; 88341; 88342; 93005; 93306; 93321; 93325; 94002; 94003; 94640; 94660; 94667; A9270-GY; C1751; C1752; C1894; C8924; C9113; G0257; J0133; J0360; J0692; J1200; J1205; J1447; J1652; J1940; J2185; J2248; J2405; J2550; J2930; J3010; J3370; J3430; J3475; J9100; J9211; P9016; P9037; P9040; P9047; P9059